=== PATIENT | male | born 1950 ===

== ENCOUNTER 2021-03-05 10:16 | Observation (INO) | payer OTHER ==
[~2021-03-05] VITALS: Ht 180.3 cm; Wt 81.7 kg
[2021-03-05 11:42] LABS: BASOPHILS ABSOLUTE AUTO 0.05 K/mm3 (0.00-0.23); BASOPHILS PERCENT AUTO 1 % (0-2); EOSINOPHILS ABSOLUTE AUTO 0.15 K/mm3 (0.00-0.68); EOSINOPHILS PERCENT AUTO 3 % (0-6); Hematocrit 40.9 % (37.0-53.0); Hemoglobin 13.5 g/dL (13.5-17.5); IMMATURE GRAN PERCENT AUTO 0 % (0-1); LYMPHOCYTES ABSOLUTE AUTO 1.23 K/mm3 (0.84-5.20); LYMPHOCYTES PERCENT AUTO 20 % (21-46); MONOCYTES ABSOLUTE AUTO 0.64 K/mm3 (0.16-1.47); MONOCYTES PERCENT AUTO 11 % (4-13); Mean Corpuscular HGB 31.6 pg (26.0-34.0); Mean Corpuscular Volume 96 fL (80-100); Mean Platelet Volume 11.2 fL (9.1-12.4); NEUTROPHILS ABSOLUTE AUTO 4.04 K/mm3 (1.96-9.15); NEUTROPHILS PERCENT AUTO 66 % (41-73); Platelet Count 124 K/mm3 (150-400); RDW Coefficient Variation 17.6 % (11.7-14.2); RDW Standard Deviation 63.1 fL (35.1-46.3); Red Blood Cell Count 4.27 M/mm3 (4.30-5.90); White Blood Cell Count 6.11 K/mm3 (4.00-11.30)
[2021-03-05 12:30] LABS: Magnesium, Blood 2.9 mg/dL (1.6-2.4)
[2021-03-05 12:32] LABS: Albumin, Blood 2.8 g/dL (3.4-5.0); Albumin/Globulin Ratio 0.6 (0.8-1.8); Bilirubin, Total 0.8 mg/dL (0.1-1.0); Bun/Creatinine Ratio 8.4 (12.0-20.0); Calcium, Blood 8.2 mg/dL (8.5-10.1); Creatinine, Blood 9.21 mg/dL (0.60-1.20); Globulin, Blood 4.7 g/dL (2.2-4.0); Total Protein, Blood 7.5 g/dL (6.4-8.2)
[2021-03-05 13:24] LABS: SARS-Cov-2 (COVID-19) PCR, MMC NEGATIVE (NEGATIVE)
== END 2021-03-05 17:59 | disposition home or self-care (01) ==
LOC: ER 10:16 → ERHOLD 10:17
PROVIDERS: Physician Assistant; ADMIT Internal Medicine
DX: E87.70 Fluid overload, unspecified (principal); I12.0 Hypertensive chronic kidney disease with stage 5 chronic kidney disease or end stage renal disease; N18.6 End stage renal disease; E11.22 Type 2 diabetes mellitus with diabetic chronic kidney disease; E87.5 Hyperkalemia; E87.1 Hypo-osmolality and hyponatremia; D64.9 Anemia, unspecified; N25.81 Secondary hyperparathyroidism of renal origin; I48.20 Chronic atrial fibrillation, unspecified; Z87.891 Personal history of nicotine dependence; Z20.822 Contact with and (suspected) exposure to COVID-19
CPT/HCPCS: 71046; 80053; 83735; 85025; A9270; G0257; U0004

== ENCOUNTER 2021-03-07 12:37 | Emergency (ER) | payer OTHER ==
[~2021-03-07] VITALS: Ht 180.3 cm; Wt 81.7 kg
[2021-03-07 13:50] LABS: BASOPHILS ABSOLUTE AUTO 0.05 K/mm3 (0.00-0.23); BASOPHILS PERCENT AUTO 1 % (0-2); EOSINOPHILS ABSOLUTE AUTO 0.14 K/mm3 (0.00-0.68); EOSINOPHILS PERCENT AUTO 2 % (0-6); Hematocrit 40.6 % (37.0-53.0); Hemoglobin 13.4 g/dL (13.5-17.5); IMMATURE GRAN ABSOLUTE AUTO 0.01 K/mm3 (0.00-0.10); IMMATURE GRAN PERCENT AUTO 0 % (0-1); LYMPHOCYTES PERCENT AUTO 20 % (21-46); MONOCYTES ABSOLUTE AUTO 0.64 K/mm3 (0.16-1.47); MONOCYTES PERCENT AUTO 11 % (4-13); Mean Corpuscular HGB 31.7 pg (26.0-34.0); Mean Corpuscular Volume 96 fL (80-100); Mean Platelet Volume 10.9 fL (9.1-12.4); NEUTROPHILS ABSOLUTE AUTO 3.92 K/mm3 (1.96-9.15); NEUTROPHILS PERCENT AUTO 66 % (41-73); Platelet Count 128 K/mm3 (150-400); RDW Coefficient Variation 17.4 % (11.7-14.2); Red Blood Cell Count 4.23 M/mm3 (4.30-5.90); White Blood Cell Count 5.96 K/mm3 (4.00-11.30)
[2021-03-07 14:23] LABS: Troponin I <0.015 ng/mL (0.000-0.040)
[2021-03-07 14:34] LABS: Alanine Aminotransfer (ALT/SGP 21 U/L (12-78); Albumin, Blood 2.8 g/dL (3.4-5.0); Albumin/Globulin Ratio 0.6 (0.8-1.8); Alk Phos 210 U/L (50-136); Anion Gap 7 mmol/L (6-16); Aspartate Aminotrans (AST/SGOT 18 U/L (12-37); Bilirubin, Total 0.9 mg/dL (0.1-1.0); Blood Urea Nitrogen 65 mg/dL (8-24); Bun/Creatinine Ratio 7.9 (12.0-20.0); CO2, Blood 28 mmol/L (21-32); Calcium, Blood 8.1 mg/dL (8.5-10.1); Chloride, Blood 98 mmol/L (98-108); Creatinine, Blood 8.18 mg/dL (0.60-1.20); Globulin, Blood 4.5 g/dL (2.2-4.0); Glomerular Filtration Rate 7 (60-); Glucose, Blood 190 mg/dL (70-99); Potassium, Blood 4.4 mmol/L (3.5-5.5); Sodium, Blood 133 mmol/L (136-145); Total Protein, Blood 7.3 g/dL (6.4-8.2)
[2021-03-07 14:55] LABS: Magnesium, Blood 2.7 mg/dL (1.6-2.4); Phosphorus, Blood 5.3 mg/dL (2.5-4.9)
[2021-03-07] MEDS ORDERED: GABA100 PO (16:19)
[2021-03-07] MEDS ORDERED: MIDO5 PO (16:19)
[2021-03-07] MEDS ORDERED: METO25ER PO (16:19)
[2021-03-07] MEDS ORDERED: ATOR40TA PO (16:19)
[2021-03-07] MEDS ORDERED: ELIQUIS5 M2 PO (16:20)
[2021-03-07] MEDS ORDERED: ERGO50000 PO (16:20)
[2021-03-07] MEDS ORDERED: FURO40 PO (16:20)
[2021-03-07] MEDS ORDERED: SEVEC800 PO (16:53)
== END 2021-03-07 17:18 | disposition home or self-care (01) ==
LOC: ER 12:37
PROVIDERS: Physician Assistant
DX: E11.22 Type 2 diabetes mellitus with diabetic chronic kidney disease (principal); N18.6 End stage renal disease; Z99.2 Dependence on renal dialysis; I48.91 Unspecified atrial fibrillation; Z79.01 Long term (current) use of anticoagulants; I12.0 Hypertensive chronic kidney disease with stage 5 chronic kidney disease or end stage renal disease; Z87.891 Personal history of nicotine dependence
CPT/HCPCS: 36415; 71046; 80053; 83690; 83735; 83880; 84100; 84484; 85025; 93005; 93010; 99283-25

== ENCOUNTER 2021-03-08 09:09 | Observation (INO) | payer OTHER ==
[~2021-03-08] VITALS: Ht 180.3 cm; Wt 83.0 kg
[~2021-03-08 09:09] MED LIST: ATOR40TA PO; ELIQUIS5 M2 PO; ERGO50000 PO; FURO40 PO; GABA100 PO; METO25ER PO; MIDO5 PO; SEVEC800 PO
[2021-03-08 11:15] LABS: Bun/Creatinine Ratio 8.3 (12.0-20.0); Calcium, Blood 7.7 mg/dL (8.5-10.1); Creatinine, Blood 8.96 mg/dL (0.60-1.20); Potassium, Blood 4.9 mmol/L (3.5-5.5)
--- NOTE | 2021-03-08 16:38 | NUR ---
DISCHARGE SUMMARY PATIENT DISCHARGED TO HOME. PATIENT ALERT AND ORIENTED THIS SHIFT. PATIENT ADMITTED LATE THIS MORNING. PATIENT ADMINTTED FOR ESRD NEEDING DIALYSIS. PATIENT DOWN FOR DIALYSIS EARLY THIS AFTERNOON. PATIENT BACK FROM DIALYSIS, DOING WELL. PATIENT WITHOUT IV. DISCHARGE INFORMATION REVIEWED WITH PATIENT. PATIENT AMBULATED OFF THE UNIT WITH NURSE.
== END 2021-03-08 16:29 | disposition home or self-care (01) ==
LOC: ER 09:09 → MEDS 09:10 → ENPENDDIS 16:29 → EDPENDDISDT 16:29 → EDPENDDISTM 16:29
PROVIDERS: Emergency Medicine; ADMIT Hospitalist
DX: E87.70 Fluid overload, unspecified (principal); I12.0 Hypertensive chronic kidney disease with stage 5 chronic kidney disease or end stage renal disease; N18.6 End stage renal disease; E11.22 Type 2 diabetes mellitus with diabetic chronic kidney disease; D64.9 Anemia, unspecified; E83.41 Hypermagnesemia; E88.09 Other disorders of plasma-protein metabolism, not elsewhere classified; R60.0 Localized edema; E78.5 Hyperlipidemia, unspecified; I48.20 Chronic atrial fibrillation, unspecified; Z79.01 Long term (current) use of anticoagulants; Z99.2 Dependence on renal dialysis; Z87.891 Personal history of nicotine dependence
CPT/HCPCS: 36415; 80048; 82947; A9270

== ENCOUNTER 2021-03-11 11:17 | Observation (INO) | payer OTHER ==
[~2021-03-11] VITALS: Ht 180.3 cm; Wt 83.5 kg
[2021-03-11 14:15] LABS: Albumin, Blood 2.7 g/dL (3.4-5.0); Albumin/Globulin Ratio 0.6 (0.8-1.8); Bilirubin, Total 0.8 mg/dL (0.1-1.0); Bun/Creatinine Ratio 7.9 (12.0-20.0); Calcium, Blood 8.1 mg/dL (8.5-10.1); Creatinine, Blood 9.92 mg/dL (0.60-1.20); Globulin, Blood 4.6 g/dL (2.2-4.0); Potassium, Blood 4.6 mmol/L (3.5-5.5); Total Protein, Blood 7.3 g/dL (6.4-8.2)
[2021-03-11 14:40] LABS: Albumin, Blood 2.7 g/dL (3.4-5.0); Anion Gap 13 mmol/L (6-16); Blood Urea Nitrogen 81 mg/dL (8-24); Bun/Creatinine Ratio 8.3 (12.0-20.0); CO2, Blood 20 mmol/L (21-32); Calcium, Blood 7.9 mg/dL (8.5-10.1); Chloride, Blood 98 mmol/L (98-108); Creatinine, Blood 9.79 mg/dL (0.60-1.20); Glomerular Filtration Rate 5 (60-); Glucose, Blood 228 mg/dL (70-99); Phosphorus, Blood 6.8 mg/dL (2.5-4.9); Potassium, Blood 4.6 mmol/L (3.5-5.5); Sodium, Blood 131 mmol/L (136-145)
== END 2021-03-11 15:30 | disposition home or self-care (01) ==
LOC: ER 11:17 → MEDS 11:18
PROVIDERS: Internal Medicine Nephrology; Physician Assistant; ADMIT Internal Medicine
DX: E87.70 Fluid overload, unspecified (principal); E87.1 Hypo-osmolality and hyponatremia; I12.0 Hypertensive chronic kidney disease with stage 5 chronic kidney disease or end stage renal disease; N18.6 End stage renal disease; E11.22 Type 2 diabetes mellitus with diabetic chronic kidney disease; E78.5 Hyperlipidemia, unspecified; I48.20 Chronic atrial fibrillation, unspecified; Z95.0 Presence of cardiac pacemaker; Z87.891 Personal history of nicotine dependence; Z79.01 Long term (current) use of anticoagulants; Z79.899 Other long term (current) drug therapy
CPT/HCPCS: 80053; 80069; 84100; 85018; 99284; G0257

== ENCOUNTER 2021-03-13 06:38 | Observation (INO) | payer OTHER ==
[~2021-03-13] VITALS: Ht 180.3 cm; Wt 81.2 kg
[2021-03-13 07:33] LABS: BASOPHILS ABSOLUTE AUTO 0.05 K/mm3 (0.00-0.23); BASOPHILS PERCENT AUTO 1 % (0-2); EOSINOPHILS ABSOLUTE AUTO 0.16 K/mm3 (0.00-0.68); EOSINOPHILS PERCENT AUTO 3 % (0-6); Hematocrit 44.9 % (37.0-53.0); Hemoglobin 14.3 g/dL (13.5-17.5); IMMATURE GRAN ABSOLUTE AUTO 0.02 K/mm3 (0.00-0.10); IMMATURE GRAN PERCENT AUTO 0 % (0-1); LYMPHOCYTES PERCENT AUTO 24 % (21-46); MONOCYTES ABSOLUTE AUTO 0.61 K/mm3 (0.16-1.47); MONOCYTES PERCENT AUTO 10 % (4-13); Mean Corpuscular HGB 31.2 pg (26.0-34.0); Mean Corpuscular HGB Conc 31.8 g/dL (31.5-36.5); Mean Corpuscular Volume 98 fL (80-100); NEUTROPHILS ABSOLUTE AUTO 4.02 K/mm3 (1.96-9.15); NEUTROPHILS PERCENT AUTO 63 % (41-73); Platelet Count 139 K/mm3 (150-400); RDW Coefficient Variation 17.2 % (11.7-14.2); RDW Standard Deviation 62.1 fL (35.1-46.3); Red Blood Cell Count 4.59 M/mm3 (4.30-5.90); White Blood Cell Count 6.36 K/mm3 (4.00-11.30)
[2021-03-13 08:24] LABS: Bun/Creatinine Ratio 7.5 (12.0-20.0); Calcium, Blood 7.6 mg/dL (8.5-10.1); Creatinine, Blood 8.53 mg/dL (0.60-1.20); Potassium, Blood 4.7 mmol/L (3.5-5.5)
== END 2021-03-13 13:27 | disposition left against medical advice (07) ==
LOC: ER 06:38 → MEDS 06:39 → ER 08:45 → MEDS 08:45
PROVIDERS: Emergency Medicine; ADMIT Internal Medicine
DX: I12.0 Hypertensive chronic kidney disease with stage 5 chronic kidney disease or end stage renal disease (principal); N18.6 End stage renal disease; E11.622 Type 2 diabetes mellitus with other skin ulcer; I48.20 Chronic atrial fibrillation, unspecified; E78.5 Hyperlipidemia, unspecified; Z87.891 Personal history of nicotine dependence; Z79.01 Long term (current) use of anticoagulants; Z79.899 Other long term (current) drug therapy
CPT/HCPCS: 36415; 80048; 85025; 99284; G0257

== ENCOUNTER 2021-03-15 06:35 | Observation (INO) | payer OTHER ==
[~2021-03-15] VITALS: Ht 180.3 cm; Wt 81.2 kg
[2021-03-15 10:49] LABS: Hemoglobin 13.5 g/dL (13.5-17.5)
[2021-03-15 11:12] LABS: Albumin, Blood 2.8 g/dL (3.4-5.0); Anion Gap 11 mmol/L (6-16); Blood Urea Nitrogen 61 mg/dL (8-24); Bun/Creatinine Ratio 7.2 (12.0-20.0); CO2, Blood 24 mmol/L (21-32); Calcium, Blood 7.1 mg/dL (8.5-10.1); Chloride, Blood 97 mmol/L (98-108); Creatinine, Blood 8.42 mg/dL (0.60-1.20); Glomerular Filtration Rate 6 (60-); Glucose, Blood 163 mg/dL (70-99); Phosphorus, Blood 5.7 mg/dL (2.5-4.9); Potassium, Blood 4.3 mmol/L (3.5-5.5); Sodium, Blood 132 mmol/L (136-145)
== END 2021-03-15 13:00 | disposition home or self-care (01) ==
LOC: ER 06:35 → MEDS 06:36
PROVIDERS: Internal Medicine Nephrology; ADMIT Family Medicine
DX: E87.70 Fluid overload, unspecified (principal); E87.1 Hypo-osmolality and hyponatremia; D64.9 Anemia, unspecified; I12.0 Hypertensive chronic kidney disease with stage 5 chronic kidney disease or end stage renal disease; N18.6 End stage renal disease; E11.22 Type 2 diabetes mellitus with diabetic chronic kidney disease; N25.81 Secondary hyperparathyroidism of renal origin; E78.5 Hyperlipidemia, unspecified; I48.20 Chronic atrial fibrillation, unspecified; Z95.0 Presence of cardiac pacemaker; Z99.2 Dependence on renal dialysis; Z87.891 Personal history of nicotine dependence; Z79.01 Long term (current) use of anticoagulants; Z79.899 Other long term (current) drug therapy
CPT/HCPCS: 80069; 85014; 85018; G0257

== ENCOUNTER 2021-03-21 09:46 | Emergency (ER) | payer OTHER ==
[~2021-03-21] VITALS: Ht 177.8 cm; Wt 85.7 kg
[2021-03-21 10:14] LABS: BASOPHILS ABSOLUTE AUTO 0.03 K/mm3 (0.00-0.23); BASOPHILS PERCENT AUTO 1 % (0-2); EOSINOPHILS ABSOLUTE AUTO 0.16 K/mm3 (0.00-0.68); EOSINOPHILS PERCENT AUTO 3 % (0-6); Hematocrit 44.5 % (37.0-53.0); Hemoglobin 14.6 g/dL (13.5-17.5); IMMATURE GRAN ABSOLUTE AUTO 0.01 K/mm3 (0.00-0.10); IMMATURE GRAN PERCENT AUTO 0 % (0-1); LYMPHOCYTES ABSOLUTE AUTO 1.23 K/mm3 (0.84-5.20); LYMPHOCYTES PERCENT AUTO 22 % (21-46); MONOCYTES ABSOLUTE AUTO 0.52 K/mm3 (0.16-1.47); MONOCYTES PERCENT AUTO 9 % (4-13); Mean Corpuscular HGB 31.4 pg (26.0-34.0); Mean Corpuscular HGB Conc 32.8 g/dL (31.5-36.5); Mean Corpuscular Volume 96 fL (80-100); Mean Platelet Volume 11.4 fL (9.1-12.4); NEUTROPHILS ABSOLUTE AUTO 3.73 K/mm3 (1.96-9.15); NEUTROPHILS PERCENT AUTO 66 % (41-73); Platelet Count 122 K/mm3 (150-400); RDW Coefficient Variation 16.8 % (11.7-14.2); RDW Standard Deviation 59.2 fL (35.1-46.3); Red Blood Cell Count 4.65 M/mm3 (4.30-5.90); White Blood Cell Count 5.68 K/mm3 (4.00-11.30)
[2021-03-21 10:36] LABS: Troponin I 0.021 ng/mL (0.000-0.040)
[2021-03-21 10:39] LABS: Albumin, Blood 3.1 g/dL (3.4-5.0); Albumin/Globulin Ratio 0.7 (0.8-1.8); Bilirubin, Total 0.8 mg/dL (0.1-1.0); Bun/Creatinine Ratio 8.6 (12.0-20.0); Calcium, Blood 7.6 mg/dL (8.5-10.1); Globulin, Blood 4.7 g/dL (2.2-4.0); Potassium, Blood 4.7 mmol/L (3.5-5.5); Total Protein, Blood 7.8 g/dL (6.4-8.2)
[2021-03-21 11:23] LABS: Base Excess Venous -7.2 mmol/L; Bicarbonate Venous 19.2 mmol/L (24.0-30.0); PCO2 Venous 36.8 mmHg (38-42); PO2 Venous 195 mmHg (38-42); pH Blood Venous 7.32 (7.34-7.37)
== END 2021-03-21 12:44 | disposition home or self-care (01) ==
LOC: ER 09:46
PROVIDERS: Emergency Medicine
DX: E11.22 Type 2 diabetes mellitus with diabetic chronic kidney disease (principal); I12.0 Hypertensive chronic kidney disease with stage 5 chronic kidney disease or end stage renal disease; N18.6 End stage renal disease; Z99.2 Dependence on renal dialysis; Z79.899 Other long term (current) drug therapy; Z79.4 Long term (current) use of insulin; I48.91 Unspecified atrial fibrillation; Z87.891 Personal history of nicotine dependence
CPT/HCPCS: 36415; 71045; 80053; 82330; 82803; 83880; 84484; 85025; 93005; 93010; 96374; 99285-25

== ENCOUNTER 2021-07-05 16:01 | Emergency (ER) | payer OTHER ==
[~2021-07-05] VITALS: Ht 177.8 cm; Wt 81.7 kg
[~2021-07-05 16:01] MED LIST changes: +Calcium Acetat667 MG PO; +HUMALOG JU100 UNIT/2; +INSULANPEN SC; +PANT40 PO
[2021-07-05 16:37] LABS: BASOPHILS ABSOLUTE AUTO 0.06 K/mm3 (0.00-0.23); BASOPHILS PERCENT AUTO 1 % (0-2); EOSINOPHILS ABSOLUTE AUTO 0.19 K/mm3 (0.00-0.68); EOSINOPHILS PERCENT AUTO 2 % (0-6); Hemoglobin 14.2 g/dL (13.5-17.5); IMMATURE GRAN ABSOLUTE AUTO 0.03 K/mm3 (0.00-0.10); IMMATURE GRAN PERCENT AUTO 0 % (0-1); LYMPHOCYTES ABSOLUTE AUTO 2.38 K/mm3 (0.84-5.20); LYMPHOCYTES PERCENT AUTO 23 % (21-46); MONOCYTES ABSOLUTE AUTO 1.25 K/mm3 (0.16-1.47); MONOCYTES PERCENT AUTO 12 % (4-13); Mean Corpuscular Volume 88 fL (80-100); Mean Platelet Volume 9.3 fL (9.1-12.4); NEUTROPHILS ABSOLUTE AUTO 6.31 K/mm3 (1.96-9.15); NEUTROPHILS PERCENT AUTO 62 % (41-73); Platelet Count 234 K/mm3 (150-400); RDW Coefficient Variation 15.4 % (11.7-14.2); Red Blood Cell Count 4.89 M/mm3 (4.30-5.90); White Blood Cell Count 10.22 K/mm3 (4.00-11.30)
[2021-07-05 16:46] LABS: Albumin, Blood 3.4 g/dL (3.4-5.0); Albumin/Globulin Ratio 0.7 (0.8-1.8); Bilirubin, Total 0.7 mg/dL (0.1-1.0); Bun/Creatinine Ratio 9.6 (12.0-20.0); Calcium, Blood 8.7 mg/dL (8.5-10.1); Creatinine, Blood 5.95 mg/dL (0.60-1.20); Globulin, Blood 4.8 g/dL (2.2-4.0); Potassium, Blood 4.3 mmol/L (3.5-5.5); Total Protein, Blood 8.2 g/dL (6.4-8.2)
[2021-07-05 16:50] LABS: Magnesium, Blood 2.7 mg/dL (1.6-2.4); Phosphorus, Blood 3.9 mg/dL (2.5-4.9)
[2021-07-05] MEDS ORDERED: LANTHANUM PO (18:40)
== END 2021-07-05 20:58 | disposition home or self-care (01) ==
LOC: ER 16:01
PROVIDERS: Student in an Organized Health Care Education/Training Program
DX: I12.0 Hypertensive chronic kidney disease with stage 5 chronic kidney disease or end stage renal disease (principal); E11.22 Type 2 diabetes mellitus with diabetic chronic kidney disease; N18.6 End stage renal disease; E11.649 Type 2 diabetes mellitus with hypoglycemia without coma; E87.1 Hypo-osmolality and hyponatremia; I48.91 Unspecified atrial fibrillation; I95.9 Hypotension, unspecified; E78.5 Hyperlipidemia, unspecified; Z99.2 Dependence on renal dialysis; Z91.048 Other nonmedicinal substance allergy status; Z79.4 Long term (current) use of insulin; Z79.899 Other long term (current) drug therapy
CPT/HCPCS: 36415; 71046; 80053; 82947; 83735; 83880; 84100; 84484; 85025; 93005; 93010; 99285-25; A9270; J7030

== ENCOUNTER 2021-12-11 10:05 | Day surgery (SDC) | payer OTHER ==
[~2021-12-11] VITALS: Ht 180.3 cm; Wt 82.0 kg
[~2021-12-11 10:05] MED LIST changes: +LANTHANUM PO; +NOVOLOG FL100 UNIT/3 SC; +TEMA30 PO
--- NOTE | 2021-12-11 15:11 | NUR ---
PATIENT IS UP OOB TO THE RESTROOM. PATIENT OFF THE MONITOR. VVS. DRESSED. PIV REMOVED. CATH TIP INTACT. PRESSURE DRESSING APPLIED. PATIENT DRESSED. REVIEWED DISCHARGE INSTRUCTIONS WITH THE PATIENT AND GIVEN COPIES. WILL RESUME DIALYSIS TOMORROW AT [facility]. PATIENT VERBALIZES UNDERSTANDING.
--- NOTE | 2021-12-11 15:35 | NUR ---
ABDOMINAL BINDER OBTAINED FROM THE SURGICAL FLOOR SUPPLY ROOM FOR THE PATIENT AND THE PATIENT WAS DISCHARGED HOME .
== END 2021-12-11 15:40 | disposition home or self-care (01) ==
LOC: MHTC 10:05
DX: N18.6 End stage renal disease (principal); Z79.01 Long term (current) use of anticoagulants; Z79.899 Other long term (current) drug therapy
CPT/HCPCS: 76937; 82947; 99152; 99153; C1750; C1769; C1887; C1894; J0690; J1644; J2250; J3010; J7030; J7040; Q9967

== ENCOUNTER 2024-12-16 15:10 | Inpatient (IN) | payer OTHER ==
[~2024-12-16] VITALS: Ht 175.3 cm; Wt 84.9 kg
[2024-12-16 17:43] VITALS: BP 155/81
[2024-12-16] MEDS ORDERED: Darbepoetin (Pharmacy Consult) SC SCH (18:00)
[2024-12-16 18:44] LABS: Anion Gap 11.0 mmol/L (3-11); Blood Urea Nitrogen 79.0 mg/dL (8-24); CO2, Blood 27.0 mmol/L (21-32); Calcium, Blood 12.9 mg/dL (8.5-10.1); Chloride, Blood 91.0 mmol/L (98-108); Creatinine, Blood 12.5 mg/dL (0.60-1.20); Glucose, Blood 226.0 mg/dL (70-99); Potassium, Blood 5.1 mmol/L (3.5-5.5); Sodium, Blood 124.0 mmol/L (136-145)
[2024-12-16] MEDS ORDERED: Ondansetron HCl 2 MG / ML 2ML Vial IV PRN (19:15)
--- NOTE | 2024-12-16 19:20 | NUR ---
V.O. FROM DR. JAEGER Patient to get Lokelma 10mg PO daily with first dose now. Called Nursing Electric Motor And Generator Assembler for contact info of PD (peritoneal dialysis) RN to dialyze patient tonight. Obtained contact number and got a hold of Lalitha PD-RN. Provided patient name and room number. Lalitha will call Dr. Jaeger for further instructions.
--- NOTE | 2024-12-16 20:00 | NUR ---
ASSUMPTION OF CARE RECEIVED CLIENT A DIRECT ADMIT FROM ED IN [place]. PER REPORT, CLIENT PD NEEDED REPLACED AND CLIENT HAD NOT DIALIZED IN 2-3 DAYS. WHEN CLIENT ARRIVED, HE STATED THAT THE PD WAS FUNCTIONAL, HE WAS JUST TO WEAK TO DIALIZE HIMSELF. CLIENT DID HAVE A FALL EXITING HIS RC APPROXIMATELY 2 DAYS AGO AND HIT HIS HEAD. CLIENT ALSO HAS ABRASIONS ON KNEES BILAT, CHIN, AND ELBOWS. CREATININE WAS 12.5. PROVIDER WAS IN THE ROOM WHEN LAB CALLED THE CRIT VALUE IN. PROVIDER STATED THAT HE PLANNED ON ORDERING A HEAD CT, AMMONIA LEVEL, AND A UA. PER REPORT, CLIENT IS AFIB AND IS AFIB AT BASELINE. BED IS IN LOW POSITION AND CALL LIGHT IS WITHIN REACH
[2024-12-16 20:26] VITALS: BP 152/94
[2024-12-16] MEDS ORDERED: Insulin Human Lispro 100 Units/ML 3ML Syringe SC SCH (21:00)
[2024-12-16] MEDS ORDERED: Insulin Glargine-Yfgn 100 Unit/mL 3 ML SYR SC SCH (21:00)
[2024-12-17 04:15] VITALS: BP 147/72
[2024-12-17 05:31] LABS: Hematocrit 34.0 % (37.0-53.0); Hemoglobin 11.5 g/dL (13.5-17.5)
[2024-12-17 06:13] LABS: Magnesium, Blood 2.4 mg/dL (1.6-2.4)
[2024-12-17 06:16] LABS: Albumin, Blood 2.2 g/dL (3.4-5.0); Anion Gap 11 mmol/L (3-11); Blood Urea Nitrogen 71 mg/dL (8-24); CO2, Blood 25 mmol/L (21-32); Calcium, Blood 11.2 mg/dL (8.5-10.1); Chloride, Blood 93 mmol/L (98-108); Creatinine, Blood 11.20 mg/dL (0.60-1.20); Glucose, Blood 317 mg/dL (70-99); Phosphorus, Blood 2.9 mg/dL (2.5-4.9); Potassium, Blood 4.3 mmol/L (3.5-5.5); Sodium, Blood 125 mmol/L (136-145)
--- NOTE | 2024-12-17 06:37 | NUR ---
Shift Summary Patient was a direct admit who arrived during previous shift. Patient is alert/oriented x 2-3, slightly CAHUILLA, forgetful, and lives alone in a trailer which he has stairs in the front. Patient had fallen while going down the front stairs of his trailer and has since been too weak to give himself peritoneal dialysis because the dialysate solutions were too heavy to carry inside. States he was fairly independent prior to the fall. Admission completed, abrasions and wounds are documented with photos in chart and wounds dressed. Med reconcilation incomplete, it was felt that patient was not mentally capable of reviewing home medications at the time. Med rec deferred to day shift. To note, patient is seen at the [facility] and has a PCP there but he is unable to recall the full name of his PCP except that it is Dr. Barr (unsure if spelling is correct). TQ2 hours using wedge and pillows. Patient currently receiving peritoneal dialysis for 10 hours over night. Lantus given d/t glucose in the dialysate solution, but patient has a poor appetite. Received a critical lab for creatinine this morning (11.20) but hospitalist not notified d/t lab trending in the right direction. On admission, creatinine was 12.5. Bed in lowest position. Call light near. Sleeping well.
[2024-12-17 07:49] VITALS: BP 145/63
[2024-12-17] MEDS ORDERED: Insulin Human Lispro 100 Units/ML 3ML Syringe SC ONE (08:05)
[2024-12-17] MEDS ORDERED: Insulin Human Lispro 100 Units/ML 3ML Syringe SC SCH ×2 (08:30→12:37)
[2024-12-17 16:22] VITALS: BP 129/63
--- NOTE | 2024-12-17 17:06 | NUR ---
WHILE CHECKING BLOOD SUGAR AND PROVIDING A SNACK, PATIENT STATES "I WOULD LIKE TO DISCONTINUE LIFE IF THIS CONTINUES." RN MARIEL Day NOTIFIED. MD MITCHELL NOTIFIED BY RN.
[2024-12-17] MEDS ORDERED: INSULIN HUMAN REGULAR IV ONE ×2 (18:00)
[2024-12-17] MEDS ORDERED: [UNRECOGNIZED DRUG - OTHER] IV ONE (18:00)
[2024-12-17] MEDS ORDERED: DEX IV ONE ×2 (18:00)
[2024-12-17] MEDS ORDERED: [UNRECOGNIZED DRUG - OTHER] IV ONE (18:00)
--- NOTE | 2024-12-17 18:32 | NUR ---
SHIFT SUM PT IS ALERT TO SELF. HE IS AWARE HE IS IN A HOSPITAL, BUT DOESNT REMEMBER THE CITY AFTER BEING TOLD. HE DOES ASK ABOUT THE DATE. ITS HARD TO TELL HOW ORIENTED HE IS BECAUSE OF HIS FATIGUE AT TIMES AND HEARING. HIS AM BLOOD SUGAR WAS 362. MD WAS NOTIFIED AND VERBAL ORDER FOR 10 ADDITIONAL UNITS RECEIVED. LUNCH BLOOD SUGAR 178. NO INSULIN WAS GIVEN, HE WAS REFUSING TO EAT. DINNER BLOOD SUGAR 62. MD WAS NOTIFED OF BLOOD SUGARS AND THAT THE PT SAID THAT HE IS READY TO END TREATMENT. PT HAD A BM TODAY ON THE BED [place] BUT FELT HE WAS ABLE TO GET HIMSELF TO THE BATHROOM. PT REMINDED THAT WE TRIED THIS AND IS NOT ABLE TO HOLD HIMSELF UP WHILE SITTING. HE IS ALSO NOT FULLY ABLE TO FEED HIMSELF OR HOLD A CUP, HIS HANDS COMPLELY STOP HAVING ANY STRENGTH AND JUST DROP DOWN ONTO HIS LAP OR ON THE BED. PT SAYS THIS IS A NEW THING OVER THE PAST COUPLE OF WEEKS. AT THE END OF SHIFT PTS BLOOD SUGAR WAS TAKEN AGAIN AND IT WAS IN THE 80S. HE IS GETTING DIALSIS AND THE BAGS DO HAVE INSULIN IN THEM, THE DIAYLSIS NURSE WAS TOLD HIS BLOOD SUGAR WAS 59, AND SAID HE WAS HAVING DIFFICULTY CHARTING THE MEDICATION/BAGS HE WAS ADMINISTERING FOR THE DIAYLSIS, BUT HE IS GIVING THEM AND THAT IT LOOKS LIKE THEY ARE SCANNED OUT CORRECTLY.
--- NOTE | 2024-12-17 18:50 | NUR ---
PT AWAKE / ALERT / SITTING UP IN BED EATTING DINNER. CYCLER STRUNG / PRIMED AND PROGRAMMED PER RX. WHEN PRIME COMPLETE PT CONNECTED AND THERAPY STARTED. PT MONITORED THROUGH ID AND START OF FILL#1 WITHOUT CONCERN OR COMPLAINT OF DISCOMFORT. DRESSING RENEWED WITH NEW STERILE DRESSING AND 2 STRAIN RELIEFS. EXIT SITE WITH SOME REDNESS AT INSERT. TANK FARM ATTENDANT AWARE OF OVERNIGHT THERAPY IN PROGRESS.
[2024-12-17 19:19] VITALS: BP 125/63
[2024-12-17 23:54] VITALS: BP 132/119
[2024-12-18 04:24] VITALS: BP 134/76
--- NOTE | 2024-12-18 06:07 | NUR ---
SHIFT SUMMARY PT IS ALERT AND ORIENTED TIMES 3-4. PT ADMITTED FOR PARITONEAL DIALYSIS CATH NOT WORKING. PT S GLUCOSE WAS IN 80 S AT ONE POINT AND UP TO THE 300 S. PT HAS A PALLATIVE CARE CONSULT TODAY. PT IS ON TELE A-FLUTTER WITH VENTRICULAR PACE, DM2, TAKE MEDICATION WHOLE WITH WATER. PT WAS RECEPTIVE TO CARE AND APPEARED TO SLEEP ON AND OFF THROUGH THE NIGHT. CALL LIGHT WITHIN REACH, RAILS TIMES 2, BED IN LOW POSITION.
[2024-12-18 06:24] LABS: BASOPHILS ABSOLUTE AUTO 0.04 K/mm3 (0.00-0.23); BASOPHILS PERCENT AUTO 1 % (0-2); EOSINOPHILS ABSOLUTE AUTO 0.22 K/mm3 (0.00-0.68); EOSINOPHILS PERCENT AUTO 3 % (0-6); Hematocrit 34.5 % (37.0-53.0); Hemoglobin 11.6 g/dL (13.5-17.5); IMMATURE GRAN ABSOLUTE AUTO 0.02 K/mm3 (0.00-0.10); IMMATURE GRAN PERCENT AUTO 0 % (0-1); LYMPHOCYTES ABSOLUTE AUTO 1.31 K/mm3 (0.84-5.20); LYMPHOCYTES PERCENT AUTO 18 % (21-46); MONOCYTES ABSOLUTE AUTO 0.60 K/mm3 (0.16-1.47); MONOCYTES PERCENT AUTO 8 % (4-13); Mean Corpuscular HGB Conc 33.6 g/dL (31.5-36.5); Mean Corpuscular Volume 93 fL (80-100); NEUTROPHILS ABSOLUTE AUTO 5.07 K/mm3 (1.96-9.15); NEUTROPHILS PERCENT AUTO 70 % (41-73); NRBC ABSOLUTE 0.00 K/mm3 (0.00-0.02); NRBC Auto 0.0 /100 WBC (0.0-0.2); Platelet Count 147 K/mm3 (150-400); RDW Coefficient Variation 14.3 % (11.7-14.2); RDW Standard Deviation 47.5 fL (35.1-46.3)
[2024-12-18 06:55] LABS: Magnesium, Blood 2.1 mg/dL (1.6-2.4); Thyroid Stimulating Hormone 2.270 uIU/mL (0.360-4.800); Uric Acid, Blood 5.1 mg/dL (3.5-7.2)
[2024-12-18 07:04] LABS: Albumin, Blood 2.2 g/dL (3.4-5.0); Anion Gap 11 mmol/L (3-11); Blood Urea Nitrogen 60 mg/dL (8-24); CO2, Blood 29 mmol/L (21-32); Calcium, Blood 10.6 mg/dL (8.5-10.1); Chloride, Blood 92 mmol/L (98-108); Creatinine, Blood 10.40 mg/dL (0.60-1.20); Glucose, Blood 213 mg/dL (70-99); Phosphorus, Blood 3.1 mg/dL (2.5-4.9); Potassium, Blood 3.8 mmol/L (3.5-5.5); Sodium, Blood 128 mmol/L (136-145)
[2024-12-18 07:18] VITALS: BP 122/78
[2024-12-18 13:09] VITALS: BP 130/81
[2024-12-18 15:54] VITALS: BP 149/85
--- NOTE | 2024-12-18 17:46 | NUR ---
PATIENT IN BED DOZING UPON FIRST ENCOUNTER BUT WAKENS EASILY TO VERBAL STIMULATION. MEANTAL CLARITY SEEMS TO BE IMPROVING. CYCLER STRUNG, PRIMED AND PROGRAMMED PER ORDER. NO INSULIN IN BAGS TONIGHT. PT AESEPTICALLY CONNECTED WHEN PRIME COMPLETE. NO C/O DISCOMFORT DURING ID AND FILL #1. EXIT SITE CARE DONE. SITE STILL RED BUT IMPROVING. NEW STERILE DRESSING APPLIED WITH 3 STRAIN RELIEFS. SALES PROPERTY MANAGER AWARE OF OVERNIGHT CCPD THERAPY IN PROGRESS.
--- NOTE | 2024-12-18 18:14 | NUR ---
PT PLEASANT AND COOP TODAY. TRUDY DIALYSIS STARTED BY SHANE IN DIALYSIS FOR TONITE. NO C/O PAIN. PT STATES WANTING TO GET SOME EXERCIZE SOON. NO OTHER NEW CONCERNS NOTED. BED INL OW POSITOIN, CALL LITE IN REACH, CALLS APPROP
[2024-12-18 20:28] VITALS: BP 136/80
[2024-12-19 00:37] VITALS: BP 113/77
[2024-12-19 05:17] VITALS: BP 152/92
[2024-12-19 05:34] LABS: BASOPHILS ABSOLUTE AUTO 0.03 K/mm3 (0.00-0.23); BASOPHILS PERCENT AUTO 0 % (0-2); EOSINOPHILS ABSOLUTE AUTO 0.25 K/mm3 (0.00-0.68); EOSINOPHILS PERCENT AUTO 3 % (0-6); Hematocrit 31.8 % (37.0-53.0); Hemoglobin 10.8 g/dL (13.5-17.5); IMMATURE GRAN ABSOLUTE AUTO 0.03 K/mm3 (0.00-0.10); IMMATURE GRAN PERCENT AUTO 0 % (0-1); LYMPHOCYTES ABSOLUTE AUTO 1.59 K/mm3 (0.84-5.20); LYMPHOCYTES PERCENT AUTO 22 % (21-46); MONOCYTES ABSOLUTE AUTO 0.71 K/mm3 (0.16-1.47); MONOCYTES PERCENT AUTO 10 % (4-13); Mean Corpuscular HGB Conc 34.0 g/dL (31.5-36.5); Mean Corpuscular Volume 91 fL (80-100); NEUTROPHILS ABSOLUTE AUTO 4.66 K/mm3 (1.96-9.15); NEUTROPHILS PERCENT AUTO 64 % (41-73); NRBC ABSOLUTE 0.00 K/mm3 (0.00-0.02); NRBC Auto 0.0 /100 WBC (0.0-0.2); Platelet Count 134 K/mm3 (150-400); RDW Coefficient Variation 14.5 % (11.7-14.2); RDW Standard Deviation 46.5 fL (35.1-46.3)
[2024-12-19 06:18] LABS: Magnesium, Blood 1.9 mg/dL (1.6-2.4)
[2024-12-19 06:20] LABS: Alanine Aminotransfer (ALT/SGP 29.0 U/L (12-78); Albumin, Blood 2.0 g/dL (3.4-5.0); Albumin/Globulin Ratio 0.6 (0.8-1.8); Anion Gap 11.0 mmol/L (3-11); Aspartate Aminotrans (AST/SGOT 30.0 U/L (12-37); Bilirubin, Total 0.7 mg/dL (0.1-1.0); Blood Urea Nitrogen 59.0 mg/dL (8-24); CO2, Blood 29.0 mmol/L (21-32); Calcium, Blood 10.0 mg/dL (8.5-10.1); Chloride, Blood 94.0 mmol/L (98-108); Creatinine, Blood 10.3 mg/dL (0.60-1.20); Globulin, Blood 3.4 g/dL (2.2-4.0); Glucose, Blood 235.0 mg/dL (70-99); Phosphorus, Blood 2.8 mg/dL (2.5-4.9); Potassium, Blood 3.5 mmol/L (3.5-5.5); Sodium, Blood 130.0 mmol/L (136-145); Total Protein, Blood 5.4 g/dL (6.4-8.2)
--- NOTE | 2024-12-19 06:24 | NUR ---
PATIENT AWAKE MOSLTY AND WHEN AWAKE ONLY ALERT TO SELF , SLOW TO RESPOND, FORGETS LIMITATIONS, AND HAS AUDITORY AND VISUAL HALUCINATION. DENIES PAIN OR SOB. NO VOID OR BM . ON PERITONIEL DIALYSIS DURRING THE NIGHT. BED ALARM ON AT ALL TIMES. WOUND CARE COMPLETE AND IV REDRESSED. .
[2024-12-19 07:36] VITALS: BP 150/97
--- NOTE | 2024-12-19 17:45 | NUR ---
SHIFT SUMMARY PT IS A/OX3-4. 1 PERSON ASSIST WITH FWW AND GB. NO ACUTE CHANGES THROUGHOUT THIS SHIFT. ON TELE RUNNING AFIB IN THE 60'S, V-PACED. ON 1000ML FLUID RESTRICTION. WOUND CARE DRESSINGS REMAIN C/D/I. PT RECIEVING PERITONEAL DIALYSIS THIS EVENING. PT IS PLEASANT AND COOPERATIVE WITH CARE AND CALLS APPROPRAITELY USING THE CALL LIGHT.
[2024-12-19 20:24] VITALS: BP 137/86
[2024-12-19] MEDS ORDERED: Insulin Human Lispro 100 Units/ML 3ML Syringe SC ONE (21:20)
--- NOTE | 2024-12-19 21:20 | NUR ---
PTS BLOOD SUGAR WAS 462. CALLED MD AND INFORMED HIM OF PTS BLOOD SUGAR. NEW ORDER RECEIVED FOR 8 UNITS HUMALOG INSULIN.
[2024-12-20 00:21] VITALS: BP 130/71
--- NOTE | 2024-12-20 04:55 | NUR ---
SHIFT SUMMARY PT ALERT ORIENTED WITH INTERMITTENT CONFUSION AND HALLUCINATIONS. ABLE TO VERBALIZE NEEDS CALLS APPROPRIATELY. RECEIVED PERITONEAL DIALYSIS LAST NIGHT. NO URINE OUTPUT THIS SHIFT. LABS TO BE COLLECTED THIS AM. FS AC AND HS WAS 462. MD WAS CALLED AND HE RECEIVED 8 UNITS OF HUMALOG AT HS. REMAINS ON TELEMETRY AT AFIB AT 70. REMAINS ON 1 LITER FLUID RESTRICTION. DRESSINGS INTACT TO SKIN TEARS ON BILAT KNEES AND LT ELBOW. VSS ON RA SATTING AT 98%. IN BED AT THIS TIME WITH CALL LIGHT IN REACH AND BED ALARM ON
[2024-12-20 05:13] VITALS: BP 138/73
[2024-12-20 07:42] VITALS: BP 106/65
[2024-12-20 09:10] LABS: BASOPHILS ABSOLUTE AUTO 0.06 K/mm3 (0.00-0.23); BASOPHILS PERCENT AUTO 1 % (0-2); EOSINOPHILS ABSOLUTE AUTO 0.31 K/mm3 (0.00-0.68); EOSINOPHILS PERCENT AUTO 4 % (0-6); Hematocrit 32.4 % (37.0-53.0); Hemoglobin 10.9 g/dL (13.5-17.5); IMMATURE GRAN ABSOLUTE AUTO 0.05 K/mm3 (0.00-0.10); IMMATURE GRAN PERCENT AUTO 1 % (0-1); LYMPHOCYTES ABSOLUTE AUTO 1.75 K/mm3 (0.84-5.20); LYMPHOCYTES PERCENT AUTO 22 % (21-46); MONOCYTES ABSOLUTE AUTO 0.73 K/mm3 (0.16-1.47); MONOCYTES PERCENT AUTO 9 % (4-13); Mean Corpuscular HGB Conc 33.6 g/dL (31.5-36.5); Mean Corpuscular Volume 93 fL (80-100); NEUTROPHILS ABSOLUTE AUTO 5.22 K/mm3 (1.96-9.15); NEUTROPHILS PERCENT AUTO 64 % (41-73); NRBC ABSOLUTE 0.00 K/mm3 (0.00-0.02); NRBC Auto 0.0 /100 WBC (0.0-0.2); Platelet Count 155 K/mm3 (150-400); RDW Coefficient Variation 14.6 % (11.7-14.2); RDW Standard Deviation 47.5 fL (35.1-46.3)
[2024-12-20 09:40] LABS: Magnesium, Blood 1.8 mg/dL (1.6-2.4)
[2024-12-20 09:50] LABS: Alanine Aminotransfer (ALT/SGP 29.0 U/L (12-78); Albumin, Blood 2.0 g/dL (3.4-5.0); Albumin/Globulin Ratio 0.6 (0.8-1.8); Anion Gap 6.0 mmol/L (3-11); Aspartate Aminotrans (AST/SGOT 34.0 U/L (12-37); Bilirubin, Total 0.6 mg/dL (0.1-1.0); Blood Urea Nitrogen 62.0 mg/dL (8-24); CO2, Blood 29.0 mmol/L (21-32); Calcium, Blood 9.6 mg/dL (8.5-10.1); Chloride, Blood 97.0 mmol/L (98-108); Creatinine, Blood 10.8 mg/dL (0.60-1.20); Globulin, Blood 3.6 g/dL (2.2-4.0); Glucose, Blood 139.0 mg/dL (70-99); Phosphorus, Blood 3.0 mg/dL (2.5-4.9); Potassium, Blood 3.6 mmol/L (3.5-5.5); Sodium, Blood 128.0 mmol/L (136-145); Total Protein, Blood 5.6 g/dL (6.4-8.2)
--- NOTE | 2024-12-20 17:42 | NUR ---
PT AWAKE / ALERT / SITTING UP IN CHAIR THIS AFTERNOON. VERY CONVERSANT BUT DEMONSTRATES SOME CONFUSION R/T DETAILS OF CURRENT SITUATION. CYCLER STRUNG, PRIMED AND PROGRAMMED PER ORDERS GIVEN. WHEN PRIME COMPLETE, PT AESEPTICALLY CONNECTED AND THERAPY STARTED. DRESSING MISSING ON EXIT SITE THIS AFTERNOON. SITE CLEANED AND REDRESSED WITH NEW STERILE DRESSING. SOME REDNESS REMAINS AT INSERT. INTERMODAL OWNER OPERATOR TRUCK DRIVER AWARE OF OVERNIGHT THERAPY IN PROGRESS. DIALYSIS NURSE WILL DISCONNECT PT IN THE MORNING.
--- NOTE | 2024-12-20 19:37 | NUR ---
SHIFT SUMMARY CLIENT IS AOX4, BUT HAS PERIODIC EPISODE OF CONFUSION AND HALLUCINATIONS. CLIENT IS MEDICATION COMPLIANT. TELEMETRY WAS DISCONTINUED. BLOOD SUGARS WERE 149,786, & 150. INSULIN COVERAGE WAS ADMINISTERED PER EMAR. DIALYSIS NURSE IN TO STARTED PERITINEAL DIALYSIS AND CLIENT IS DIALYSING AT END OF SHIFT. BED IS IN LOW POSITION AND CALL LIGHT IS WITHIN REACH
[2024-12-20 20:23] VITALS: BP 126/70
--- NOTE | 2024-12-21 00:07 | NUR ---
21:45 Patient assisted to the restroom by MSWS. Patient independently performed hygiene tasks and is then assisted back to bed by RN. 23:00 Patient is resting comfortably in bed with his eyes closed. Call light within reach.
--- NOTE | 2024-12-21 03:26 | NUR ---
Patient's dialysis machine was erroring out for low pressure. Bag adjusted and alarm stopped alarming. Patient is resting in bed.
[2024-12-21 05:02] VITALS: BP 152/92
--- NOTE | 2024-12-21 05:18 | NUR ---
SHIFT SUMMARY PT ALERT ORIENTED X 4 ABLE TO VERBALIZE NEEDS CALLS APPROPRIATELY DOES HAVE SOME HALLUCINATIONS AMBULATES WITH SBA WITH WALKER WAS ABLE TO AMBULATE TO THE BATHROOM. HE HAD HIS PERITONEAL DIALYSIS LAST NIGHT AND HE TOLERATED IT WELL. REMAINS ON 1 LITER FLUID RESTRICTION HAS SKIN TEARS TO HIS BILATERAL KNEES AND LT ELBOW WITH DRESSINGS INTACT. ALSO HAS BRUISES TO HIS CHIN, NECK ELBOW AND KNEES FROM A FALL AT HOME. HE HAS A RT ARM FISTULA WITH GOOD BRUIT. WAITING ON A SNF PLACEMENT WHERE HE CAN DO DIALYSIS. RESTING IN BED AT THIS TIME WITH CALL LIGHT IN REACH
--- NOTE | 2024-12-21 05:28 | NUR ---
SHIFT SUMMARY: PATIENT HAS PERIODS OF BEING A&Ox4 AND PERIODS WHERE HE IS CONFUSED. PATIENT IS EXPERIENCING BOTH VISUAL AND AUDITORY HALLUCINATIONS THROUGHOUT THE NIGHT AND CALMS ONCE HE IS RECENTERED. HE IS PLEASANT AND COOPERATIVE WITH CARE. CALLS APPROPRIATELY AND IS ABLE TO ADVOCATE NEEDS EFFECTIVELY. HE AMBULATES WITH FWW AND STAND BY ASSIST ALTHOUGH HE IS WEAK. HE IS ORIENTED TO HIS ABILITY AND WILL RETURN TO BED ONCE HE DONE WITH ADLS. PATIENT IS CONTINENT OF BOWEL AND BLADDER; ALTHOUGH HAS HAD NO URINE OUTPUT OR A BOWEL MOVEMENT DURING THIS SHIFT. PATIENT IS ON FLUID RESTRICTION. PATIENT IS NOT ON TELE, BP HAS BEEN WNL. GLUCOSE LEVEL WAS 330 AT BEDTIME. 2 UNITS OF HUMALOG AND 10 UNITS OF GLARGINE ARE ADMINISTERED. OPEN WOUND ON LEFT IS CLEANED AND BANDAGED.
[2024-12-21 06:33] LABS: BASOPHILS ABSOLUTE AUTO 0.05 K/mm3 (0.00-0.23); BASOPHILS PERCENT AUTO 1 % (0-2); EOSINOPHILS ABSOLUTE AUTO 0.28 K/mm3 (0.00-0.68); EOSINOPHILS PERCENT AUTO 3 % (0-6); Hematocrit 32.5 % (37.0-53.0); Hemoglobin 11.1 g/dL (13.5-17.5); IMMATURE GRAN ABSOLUTE AUTO 0.04 K/mm3 (0.00-0.10); IMMATURE GRAN PERCENT AUTO 0 % (0-1); LYMPHOCYTES ABSOLUTE AUTO 1.33 K/mm3 (0.84-5.20); LYMPHOCYTES PERCENT AUTO 15 % (21-46); MONOCYTES ABSOLUTE AUTO 0.73 K/mm3 (0.16-1.47); MONOCYTES PERCENT AUTO 8 % (4-13); Mean Corpuscular HGB Conc 34.2 g/dL (31.5-36.5); Mean Corpuscular Volume 91 fL (80-100); NEUTROPHILS ABSOLUTE AUTO 6.71 K/mm3 (1.96-9.15); NEUTROPHILS PERCENT AUTO 73 % (41-73); NRBC ABSOLUTE 0.00 K/mm3 (0.00-0.02); NRBC Auto 0.0 /100 WBC (0.0-0.2); Platelet Count 153 K/mm3 (150-400); RDW Coefficient Variation 14.8 % (11.7-14.2); RDW Standard Deviation 47.8 fL (35.1-46.3)
[2024-12-21 07:07] LABS: Magnesium, Blood 1.8 mg/dL (1.6-2.4)
[2024-12-21 07:10] LABS: Albumin, Blood 2.2 g/dL (3.4-5.0); Anion Gap 10 mmol/L (3-11); Blood Urea Nitrogen 58 mg/dL (8-24); CO2, Blood 29 mmol/L (21-32); Calcium, Blood 9.2 mg/dL (8.5-10.1); Chloride, Blood 95 mmol/L (98-108); Creatinine, Blood 10.20 mg/dL (0.60-1.20); Glucose, Blood 285 mg/dL (70-99); Phosphorus, Blood 3.3 mg/dL (2.5-4.9); Potassium, Blood 3.7 mmol/L (3.5-5.5); Sodium, Blood 130 mmol/L (136-145)
[2024-12-21 07:40] VITALS: BP 125/72
--- NOTE | 2024-12-21 15:38 | NUR ---
AMA DISCHARGE CLIENT IS AOX3-4. MEDICATION COMPLIANT. COMPLETED PARATENEAL DIALYSIS. WENT TO DIALYSIS FOR HEMO DIALYSIS. CLIENT'S FISTULA FAILED. CLIENT SPENT MOST OF HIS TIME ON THE UNIT ON HIS TELEPHONE. IT WAS NOTED THAT THE CLIENT WAS NO LONGER IN HIS ROOM. SUBSEQUENTLY, A NOTE WAS FOUND STATING HE WAS LEAVING THE HOSPITAL. CLIENT'S PROPERTY WAS MISSING OUT OF THE ROOM AND THE CLIENT STILL HAD HIS IV IN PLACE IN THE LEFT AC.
[2024-12-22 16:55] LABS: HEPATITIS B SURFACE ANTIBODY 73.55 IU/L
[2024-12-22 17:28] LABS: HBV CORE ANTIBODIES,TOTAL Negative (Negative)
== END 2024-12-21 13:40 | disposition left against medical advice (07) | DRG 682 ==
LOC: MEDS 15:10
PROVIDERS: Internal Medicine Nephrology; Nurse Practitioner Acute Care; ADMIT Internal Medicine
PROC: 3E1M39Z Irrigation of Peritoneal Cavity using Dialysate, Percutaneous Approach (ICD-10-PCS; principal; 2024-12-16)
DX: N17.9 Acute kidney failure, unspecified (principal); G92.8 Other toxic encephalopathy; I48.92 Unspecified atrial flutter; E87.1 Hypo-osmolality and hyponatremia; I13.2 Hypertensive heart and chronic kidney disease with heart failure and with stage 5 chronic kidney disease, or end stage renal disease; I50.22 Chronic systolic (congestive) heart failure; I48.19 Other persistent atrial fibrillation; D63.1 Anemia in chronic kidney disease; Z66 Do not resuscitate; N18.6 End stage renal disease; Z60.2 Problems related to living alone; Z99.2 Dependence on renal dialysis; R29.6 Repeated falls; R53.1 Weakness; E11.22 Type 2 diabetes mellitus with diabetic chronic kidney disease; K74.60 Unspecified cirrhosis of liver; M10.9 Gout, unspecified; E87.5 Hyperkalemia; Z91.158 Patient's noncompliance with renal dialysis for other reason; E11.65 Type 2 diabetes mellitus with hyperglycemia; Z79.01 Long term (current) use of anticoagulants; Z79.4 Long term (current) use of insulin; Z79.899 Other long term (current) drug therapy; E83.52 Hypercalcemia; E88.09 Other disorders of plasma-protein metabolism, not elsewhere classified; F32.9 Major depressive disorder, single episode, unspecified
CPT/HCPCS: 36415; 70450; 71045; 80048; 80053; 80069; 82140; 82533; 82947; 83036; 83735; 84100; 84443; 84550; 85014; 85018; 85025; 86704; 87340; 97110; 97112; 97116; 97162; 97165; 97530; 97535; A9270; G0378; J1815

== ENCOUNTER 2024-12-21 14:50 | Emergency (ER) | payer OTHER ==
[~2024-12-21] VITALS: Ht 165.1 cm; Wt 74.8 kg
== END 2024-12-21 15:18 | disposition left against medical advice (07) ==
LOC: ER 14:50
DX: S01.81XA Laceration without foreign body of other part of head, initial encounter (principal); W18.30XA Fall on same level, unspecified, initial encounter; Z87.891 Personal history of nicotine dependence; Z79.4 Long term (current) use of insulin; Z79.899 Other long term (current) drug therapy
CPT/HCPCS: 99282

== ENCOUNTER 2025-03-10 21:04 | Inpatient (IN) | payer OTHER ==
[~2025-03-10] VITALS: Ht 175.3 cm; Wt 80.1 kg
[2025-03-11] VITALS (20 sets, daily range): BP systolic 81–121; BP diastolic 44–77
[2025-03-11 01:43] LABS: Hematocrit 32.7 % (37.0-53.0); Hemoglobin 10.6 g/dL (13.5-17.5); Mean Corpuscular HGB Conc 32.4 g/dL (31.5-36.5); Mean Corpuscular Volume 97 fL (80-100); NRBC ABSOLUTE 0.00 K/mm3 (0.00-0.02); NRBC Auto 0.0 /100 WBC (0.0-0.2); Platelet Count 146 K/mm3 (150-400); RDW Coefficient Variation 16.8 % (11.7-14.2); RDW Standard Deviation 58.5 fL (35.1-46.3)
[2025-03-11 01:58] LABS: Prothrombin Time Results 14.7 Sec (9.7-11.5)
[2025-03-11 01:59] LABS: Alanine Aminotransfer (ALT/SGP 29.0 U/L (12-78); Albumin, Blood 2.8 g/dL (3.4-5.0); Albumin/Globulin Ratio 0.7 (0.8-1.8); Anion Gap 11.0 mmol/L (3-11); Aspartate Aminotrans (AST/SGOT 42.0 U/L (12-37); Bilirubin, Total 0.7 mg/dL (0.1-1.0); Blood Urea Nitrogen 41.0 mg/dL (8-24); CO2, Blood 29.0 mmol/L (21-32); Calcium, Blood 11.0 mg/dL (8.5-10.1); Chloride, Blood 91.0 mmol/L (98-108); Creatinine, Blood 7.25 mg/dL (0.60-1.20); Globulin, Blood 4.1 g/dL (2.2-4.0); Glucose, Blood 152.0 mg/dL (70-99); Magnesium, Blood 2.2 mg/dL (1.6-2.4); Phosphorus, Blood 3.8 mg/dL (2.5-4.9); Potassium, Blood 4.1 mmol/L (3.5-5.5); Sodium, Blood 127.0 mmol/L (136-145); Total Protein, Blood 6.9 g/dL (6.4-8.2)
[2025-03-11 02:01] LABS: BAND PERCENT MAN 28 % (0-8); BASOPHILS ABSOLUTE MAN 0.00 K/mm3 (0.00-0.23); BASOPHILS PERCENT MAN 0 % (0-2); EOSINOPHILS ABSOLUTE MAN 0.00 K/mm3 (0.00-0.68); EOSINOPHILS PERCENT MAN 0 % (0-6); LYMPHOCYTES ABSOLUTE MAN 0.70 K/mm3 (0.84-5.20); LYMPHOCYTES PERCENT MAN 2 % (21-46); METAMYELOCYTE ABSOLUTE MAN 1.40 K/mm3 (0.00-0.00); METAMYELOCYTE PERCENT MAN 4 % (0-0); MONOCYTES ABSOLUTE MAN 0.35 K/mm3 (0.16-1.47); MONOCYTES PERCENT MAN 1 % (4-13); MYELOCYTE ABSOLUTE MAN 0.35 K/mm3 (0.00-0.00); MYELOCYTE PERCENT MAN 1 % (0-0); NEUTROPHILS ABSOLUTE MAN 32.27 K/mm3 (1.96-9.15); SEG NEUTROPHILS PERCENT MAN 64 % (41-73)
[2025-03-11] MEDS ORDERED: FLU VACC TS2025(65UP)/MF59C/PF 45 MCG/0.5 ML SYRINGE IM SCH (02:30)
--- NOTE | 2025-03-11 05:31 | NUR ---
REPORTED CRITICAL RESULT OF + BLOOD CULTURES TO DR TAYLOR
[2025-03-11] MEDS ORDERED: METO25ER PO (05:56)
[2025-03-11] MEDS ORDERED: CALCITRIOL0.5 MC1 PO (05:59)
[2025-03-11] MEDS ORDERED: VOLTAREN ARTHRI20 GM TOP (06:01)
[2025-03-11] MEDS ORDERED: Calcium Carbon500 MG PO (06:01)
[2025-03-11] MEDS ORDERED: CAPT25 PO (06:02)
[2025-03-11] MEDS ORDERED: ENGERIX B IM (06:14)
--- NOTE | 2025-03-11 06:14 | NUR ---
ASSUMED CARE @ 0000 PT DIRECT ADMIT FROM [facility]. TOLD IN REPORT PT WAS BEING ADMITTED FOR SEPSIS OF UNKNOWN ORIGIN AND FALL AT HOME/ MISSED DIALYSIS APPT. WAS TOLD PT WAS I&O CATHED FOR A URINE SAMPLE BUT IS BASELINE ANURIC WITH ESRD. PT ARRIVED TO UNIT WITH A FINCH CATHETER THAT WAS UNBEKNOWNST TO NURSING STAFF. REMOVED PER PROTOCOL, NOT REPLACED D/T ANURIA/NURSING JUDGEMENT. NO URINE WAS IN FINCH CATHETER AT TIME OF REMOVAL. PT PLACED ON TELE RUNNING AFIB IN THE 70'S, 2V CXRAY COMPLETED AND BLOOD CULTURES DRAWN. THIS RN WAS CALLED BY [facility] FOR CRITICAL RESULT OF MRSA + BLOOD CULTURE. PHYSICIAN NOTIFIED. REPEAT SAMPLES TO BE COLLECTED FROM DIALYSIS PORT BY DIALYSIS NURSE WHEN PT IS DIALYZED TODAY. PLACED IN CONTACT ISOLATION FOR MRSA WITH OPEN WOUND. PT HAS NONBLANCHABLE PRESSURE INJURY ON COCCYX.
[2025-03-11] MEDS ORDERED: Darbepoetin (Pharmacy Consult) SC SCH (07:20)
[2025-03-11] MEDS ORDERED: Vancomycin (Pharmacy Consult) IV SCH (08:50)
[2025-03-11] MEDS ORDERED: Insulin Human Lispro 100 Units/ML 3ML Syringe SC SCH (09:00)
[2025-03-11] MEDS ORDERED: CAPTOPRIL 25MG TABLET PO SCH (12:04)
[2025-03-11] MEDS ORDERED: POTCHL20ER PO (14:22)
[2025-03-11] MEDS ORDERED: TRAZ50 PO (14:23)
[2025-03-11] MEDS ORDERED: SERTRALINE HCL50 MG PO (14:26)
[2025-03-11] MEDS ORDERED: ERGO50000 PO (14:31)
--- NOTE | 2025-03-11 18:26 | NUR ---
NO ACUTE CHANGES, PATIENT TIRED AND WEAK AFTER DIALYSIS THIS AM, 1000 OF FLUID REMOVED, PATIENT BECAME HYPOTENSIVE AND DIALYSIS WAS UNABLE TO TAKE MORE FLUID, PATIENT ALERT AND OREINTED X2, VERY FORGETFUL, CLEARLY MAKES NEEDS KNOWN, ANURIA, DR JAEGER ROUNDED LATER IN THE DAY, CALL LIGHT WITH IN REACH, WILL RLEAY TO PM RN
[2025-03-11] MEDS ORDERED: Arginine/Glutamine/Calcium Hmb 1 Packet PO SCH (21:00)
[2025-03-11] MEDS ORDERED: Lactobacil 2-S.Thermo-Bifido 1 1 Cap PO SCH (21:00)
[2025-03-11] MEDS ORDERED: Insulin Glargine 100 Unit/ML 3 ML SYR SC SCH (21:00)
--- NOTE | 2025-03-11 23:28 | NUR ---
Critical Value Notification Positive blood cultures w/ gram positive cocci in clusters reported via cell phone to Dr. Pradeep Valadez. Patient currently receiving Vanco IV abx. No acute changes in neuro status from shift start. No new orders. hostess cashier Thomas also informed.
[2025-03-12] VITALS (19 sets, daily range): BP systolic 102–139; BP diastolic 55–73
[2025-03-12 05:07] LABS: BASOPHILS ABSOLUTE AUTO 0.11 K/mm3 (0.00-0.23); BASOPHILS PERCENT AUTO 0 % (0-2); EOSINOPHILS ABSOLUTE AUTO 0.44 K/mm3 (0.00-0.68); EOSINOPHILS PERCENT AUTO 2 % (0-6); Hematocrit 29.9 % (37.0-53.0); Hemoglobin 9.8 g/dL (13.5-17.5); IMMATURE GRAN ABSOLUTE AUTO 1.02 K/mm3 (0.00-0.10); IMMATURE GRAN PERCENT AUTO 4 % (0-1); LYMPHOCYTES ABSOLUTE AUTO 0.99 K/mm3 (0.84-5.20); LYMPHOCYTES PERCENT AUTO 4 % (21-46); MONOCYTES ABSOLUTE AUTO 1.17 K/mm3 (0.16-1.47); MONOCYTES PERCENT AUTO 5 % (4-13); Mean Corpuscular HGB Conc 32.8 g/dL (31.5-36.5); Mean Corpuscular Volume 98 fL (80-100); NEUTROPHILS ABSOLUTE AUTO 21.19 K/mm3 (1.96-9.15); NEUTROPHILS PERCENT AUTO 85 % (41-73); NRBC ABSOLUTE 0.00 K/mm3 (0.00-0.02); NRBC Auto 0.0 /100 WBC (0.0-0.2); Platelet Count 138 K/mm3 (150-400); RDW Coefficient Variation 16.8 % (11.7-14.2); RDW Standard Deviation 60.5 fL (35.1-46.3)
--- NOTE | 2025-03-12 05:32 | NUR ---
PT COMPLAINED OF SoB THIS EVENING AFTER SLEEPING ON HIS BACK, REPOSITIONED WHICH SEEMED TO HELP. BEGAN SHIFT SLIGHTLY MORE LETHARGIC BUT SEEMED TO BECOME MORE WITH IT THE NIGHT WENT ON. NO MORE CHANGES OF NOTE
[2025-03-12 05:40] LABS: Magnesium, Blood 1.2 mg/dL (1.6-2.4)
[2025-03-12 07:11] LABS: Albumin, Blood 2.5 g/dL (3.4-5.0); Anion Gap 3 mmol/L (3-11); Blood Urea Nitrogen 56 mg/dL (8-24); CO2, Blood 36 mmol/L (21-32); Chloride, Blood 94 mmol/L (98-108); Creatinine, Blood 5.90 mg/dL (0.60-1.20); Glucose, Blood 122 mg/dL (70-99); Phosphorus, Blood 2.4 mg/dL (2.5-4.9); Potassium, Blood 3.3 mmol/L (3.5-5.5); Sodium, Blood 130 mmol/L (136-145); Vancomycin, Random 20.3 ug/mL
[2025-03-12 07:18] LABS: Calcium, Blood 8.5 mg/dL (8.5-10.1)
[2025-03-12] MEDS ORDERED: Potassium Chloride 10 Meq Tablet SA PO ONE (07:30)
[2025-03-12] MEDS ORDERED: Potassium Phosphate Dibasic 10 MM in Dextrose 5% 250 ML IV STA (07:36)
[2025-03-12] MEDS ORDERED: Mag Sulfate 1 GM/D5% 100ML 100 ML IV STA (07:37)
--- NOTE | 2025-03-12 08:01 | NUR ---
PT WITH IV MAG AND IV POTASSIUM ORDERED THIS MORNING. PT IS SCHEDULED FOR DIALYSIS AT 0815. THIS RN CONFIRMED WITH DIALYSIS NURSE TORO AND PHARMACIST CORA, PLAN IS TO HOLD POTASSIUM/MAG IV UNTIL AFTER DIALYSIS TREATMENT.
--- NOTE | 2025-03-12 08:24 | NUR ---
PT TRANSPORTED TO DIALYSIS, VIA MEDICAL BED WITH TWO STAFF. RN NOTIFIED JOSE MATSON THAT PT TRANSFERRED TO DIALYSIS.
[2025-03-12] MEDS ORDERED: NS 250 ML IV PRN (12:05)
--- NOTE | 2025-03-12 12:13 | NUR ---
LATE ENTRY: 11:40, PT RETURNED FROM DIALYSIS, TRANSPORTED VIA MEDICAL BED. RN NOTIFIED FIRE INVESTIGATION MANAGER. PT TOLERATED PROCEDURE WELL. OIL SALES AND SERVICE REP REPORTS THEY REMOVED 1.5 LITERS. 12:13: PT IS PRESENTLY EATING BREAKFAST, SITTING IN CHAIR. HE DENIES PAIN.
--- NOTE | 2025-03-12 16:31 | NUR ---
PT IS A&O X4. FULL CODE. RECEIVED DIALYSIS TODAY, REMOVED 1.5 LITERS OF FLUID. LEFT FOOT XR DONE TODAY TO EVALUATE FOR PAIN AFTER 03/10'S GLF, SHOWED OSTEOARTHRITIS, NO FRACTURES OR ACUTE CHANGES. ECHOCARDIOGRAM ALSO DONE TODAY. PLAN IS TO REMOVE PERMACATH FROM RIGHT UPPER CHEST WALL AND ASSESS AV FISTULA IN RIGHT UPPER ARM FOR POSSIBLE FUTURE DIALYSIS. PT IS ON TELEMETRY, RUNNING AFIB IN THE 70'S MOST OF THE SHIFT, WITH OCCASSIONAL PACEMAKER SPIKES. PT RECEIVED IV VANCOMYCIN, AND REPLACEMENT OF POTASSIUM VIA IV. NEW PERIPHERAL IV PLACED TO PT'S LEFT FOREARM.
[2025-03-12] MEDS ORDERED: Darbepoetin Alfa In Albumn Sol 40 MCG/0.4 ML SC SCH (17:00)
[2025-03-12] MEDS ORDERED: Chlorhexidine Mouth Care 15 ML UDC MT SCH (17:00)
--- NOTE | 2025-03-12 21:22 | NUR ---
Nurse Note WHILE GIVING PATIENT INSULIN ORDER STATES 17 UNITS. PATIENT REFUSED TO TAKE ALL 17 UNITS. PATIENT STATES "I DONT TAKE 17 UNITS. I SHOULD TAKE ONLY 8 UNITS. MAYBE I SHOULD TAKE 10 BECAUSE IM DRINKING APPLE JUICE." PATIENT GIVEN 10 UNITS VERIFIED BY KACY FAGAN.
[2025-03-13] VITALS (19 sets, daily range): BP systolic 120–1112; BP diastolic 58–89
[2025-03-13 04:57] LABS: BASOPHILS ABSOLUTE AUTO 0.09 K/mm3 (0.00-0.23); BASOPHILS PERCENT AUTO 1 % (0-2); EOSINOPHILS ABSOLUTE AUTO 0.21 K/mm3 (0.00-0.68); EOSINOPHILS PERCENT AUTO 1 % (0-6); Hematocrit 29.9 % (37.0-53.0); Hemoglobin 9.7 g/dL (13.5-17.5); IMMATURE GRAN ABSOLUTE AUTO 0.09 K/mm3 (0.00-0.10); IMMATURE GRAN PERCENT AUTO 1 % (0-1); LYMPHOCYTES ABSOLUTE AUTO 1.07 K/mm3 (0.84-5.20); LYMPHOCYTES PERCENT AUTO 7 % (21-46); MONOCYTES ABSOLUTE AUTO 0.91 K/mm3 (0.16-1.47); MONOCYTES PERCENT AUTO 6 % (4-13); Mean Corpuscular HGB Conc 32.4 g/dL (31.5-36.5); Mean Corpuscular Volume 98 fL (80-100); NEUTROPHILS ABSOLUTE AUTO 12.83 K/mm3 (1.96-9.15); NEUTROPHILS PERCENT AUTO 84 % (41-73); NRBC ABSOLUTE 0.02 K/mm3 (0.00-0.02); NRBC Auto 0.1 /100 WBC (0.0-0.2); Platelet Count 130 K/mm3 (150-400); RDW Coefficient Variation 16.6 % (11.7-14.2); RDW Standard Deviation 59.6 fL (35.1-46.3)
[2025-03-13 05:38] LABS: Albumin, Blood 2.6 g/dL (3.4-5.0); Anion Gap 9 mmol/L (3-11); Blood Urea Nitrogen 34 mg/dL (8-24); CO2, Blood 31 mmol/L (21-32); Calcium, Blood 9.3 mg/dL (8.5-10.1); Chloride, Blood 94 mmol/L (98-108); Creatinine, Blood 4.43 mg/dL (0.60-1.20); Glucose, Blood 161 mg/dL (70-99); Magnesium, Blood 2.2 mg/dL (1.6-2.4); Phosphorus, Blood 2.4 mg/dL (2.5-4.9); Potassium, Blood 3.9 mmol/L (3.5-5.5); Sodium, Blood 130 mmol/L (136-145); Vancomycin, Random 20.5 ug/mL
--- NOTE | 2025-03-13 05:51 | NUR ---
SHIFT SUMMARY PATIENT ADMITTED FOR HYPOXIA, NEEDING DIALYSIS; SEPSIS OF UNKNOWN ORIGIN. ALERT AND ORIENTED X4 WITH SOME CONFUSION NOTED. VSS. NO ACUTE OVERNIGHT EVENTS. BED RAILS UP X2. BED IN LOWEST POSITION FOR SAFETY. CALL LIGHT WITHIN REACH.
[2025-03-13] MEDS ORDERED: Sodium Phosphate 10 MM in Dextrose 5% 250 ML IV STA (06:14)
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
--- NOTE | 2025-03-13 18:22 | NUR ---
SHIFT SUMMARY: PATIENT A+O X3 AND ABLE TO MAKE NEEDS KNOWN THROUGHOUT THIS DAY. PATIENT HAD DIALYSIS THIS MORNING AND HAD 1.5L REMOVED. ULTRASOUND COMPLETED ON R AV FISTULA, DR. JAEGER NOTIFIED. THIS NURSE SPOKE WITH DR. OLSON AND DISCUSSED PLAN OF CARE. PLAN TO OBTAIN BLOOD CULTURES FROM POWERGLIDE, AND PERIPHERAL BY THE END OF THIS DAY. BLOOD CULTURE FROM CATH TO BE COMPLETED TOMORROW BY DIALYSIS NURSE. LUNGS CLEAR UPON ASCULTATION, TELE RUNNING NSR. THIS GENTLEMAN IS NOTED TO HAVE WAXING MENTATION, HAS SUBTLE OUTBURTS BUT IS ABLE TO BE REDIRECTED. CURRENTLY SITTING IN THE CHAIR, CALL LIGHT WITHIN REACH, WILL GIVE REPORT TO ONCOMING RN.
[2025-03-14] VITALS (17 sets, daily range): BP systolic 112–181; BP diastolic 53–98
--- NOTE | 2025-03-14 04:47 | NUR ---
SHIFT SUMMARY PATIENT ADMITTED FOR HYPOXIA, NEEDING DIALYSIS; SEPSIS OF UNKNOWN ORIGIN. VSS. PATIENT RESTING IN RECLINER THROUGHOUT THE SHIFT. NO ACUTE OVERNIGHT EVENTS. CHAIR ALARM ON FOR SAFETY. CALL LIGHT WITHIN REACH.
[2025-03-14 05:23] LABS: BASOPHILS ABSOLUTE AUTO 0.06 K/mm3 (0.00-0.23); BASOPHILS PERCENT AUTO 1 % (0-2); EOSINOPHILS ABSOLUTE AUTO 0.24 K/mm3 (0.00-0.68); EOSINOPHILS PERCENT AUTO 3 % (0-6); Hematocrit 31.4 % (37.0-53.0); Hemoglobin 10.0 g/dL (13.5-17.5); IMMATURE GRAN ABSOLUTE AUTO 0.08 K/mm3 (0.00-0.10); IMMATURE GRAN PERCENT AUTO 1 % (0-1); LYMPHOCYTES ABSOLUTE AUTO 1.34 K/mm3 (0.84-5.20); LYMPHOCYTES PERCENT AUTO 15 % (21-46); MONOCYTES ABSOLUTE AUTO 0.86 K/mm3 (0.16-1.47); MONOCYTES PERCENT AUTO 10 % (4-13); Mean Corpuscular HGB Conc 31.8 g/dL (31.5-36.5); Mean Corpuscular Volume 98 fL (80-100); NEUTROPHILS ABSOLUTE AUTO 6.48 K/mm3 (1.96-9.15); NEUTROPHILS PERCENT AUTO 72 % (41-73); NRBC ABSOLUTE 0.03 K/mm3 (0.00-0.02); NRBC Auto 0.3 /100 WBC (0.0-0.2); Platelet Count 134 K/mm3 (150-400); RDW Coefficient Variation 16.2 % (11.7-14.2); RDW Standard Deviation 58.7 fL (35.1-46.3)
[2025-03-14 06:00] LABS: Alanine Aminotransfer (ALT/SGP 34 U/L (12-78); Albumin, Blood 2.6 g/dL (3.4-5.0); Albumin/Globulin Ratio 0.6 (0.8-1.8); Anion Gap 8 mmol/L (3-11); Aspartate Aminotrans (AST/SGOT 42 U/L (12-37); Bilirubin, Total 0.6 mg/dL (0.1-1.0); Blood Urea Nitrogen 36 mg/dL (8-24); CO2, Blood 31 mmol/L (21-32); Calcium, Blood 9.3 mg/dL (8.5-10.1); Chloride, Blood 94 mmol/L (98-108); Creatinine, Blood 4.11 mg/dL (0.60-1.20); Globulin, Blood 4.2 g/dL (2.2-4.0); Glucose, Blood 127 mg/dL (70-99); Magnesium, Blood 2.1 mg/dL (1.6-2.4); Potassium, Blood 3.9 mmol/L (3.5-5.5); Sodium, Blood 129 mmol/L (136-145); Total Protein, Blood 6.8 g/dL (6.4-8.2); Vancomycin, Random 21.4 ug/mL
--- NOTE | 2025-03-14 16:18 | NUR ---
DIALYSIS PORT- PER MARINA SHE IS TRYING TO GET THIS PTS PORT REMOVED TONIGHT. SHE WILL CALL ME WITH AN UPDATE. POSS REMOVAL TOMORROW.
--- NOTE | 2025-03-14 18:27 | NUR ---
SHIFT SUMMARY- PT HAD DIALYSIS TODAY. PORT WILL BE REMOVED AND CX TOMORROW PER HCP.
[2025-03-15] VITALS (7 sets, daily range): BP systolic 123–146; BP diastolic 68–98
--- NOTE | 2025-03-15 04:29 | NUR ---
SHIFT SUMMARY PATIENT ADMITTED FOR HYPOXIA, NEEDING DIALYSIS; SEPSIS OF UNKNOWN ORIGIN. ALERT AND ORIENTED X4, ABLE TO MAKE NEEDS KNOWN. VSS. NO ACUTE OVERNIGHT EVENTS. PATIENT RESTING IN BED WITH EYES CLOSED. BED RAILS UP X2. BED IN LOWEST POSITION FOR SAFETY. CALL LIGHT WITHIN REACH.
[2025-03-15 06:08] LABS: BASOPHILS ABSOLUTE AUTO 0.06 K/mm3 (0.00-0.23); BASOPHILS PERCENT AUTO 1 % (0-2); EOSINOPHILS ABSOLUTE AUTO 0.21 K/mm3 (0.00-0.68); EOSINOPHILS PERCENT AUTO 3 % (0-6); Hematocrit 30.0 % (37.0-53.0); Hemoglobin 9.6 g/dL (13.5-17.5); IMMATURE GRAN ABSOLUTE AUTO 0.07 K/mm3 (0.00-0.10); IMMATURE GRAN PERCENT AUTO 1 % (0-1); LYMPHOCYTES ABSOLUTE AUTO 1.35 K/mm3 (0.84-5.20); LYMPHOCYTES PERCENT AUTO 17 % (21-46); MONOCYTES ABSOLUTE AUTO 0.96 K/mm3 (0.16-1.47); MONOCYTES PERCENT AUTO 12 % (4-13); Mean Corpuscular HGB Conc 32.0 g/dL (31.5-36.5); Mean Corpuscular Volume 98 fL (80-100); NEUTROPHILS ABSOLUTE AUTO 5.19 K/mm3 (1.96-9.15); NEUTROPHILS PERCENT AUTO 66 % (41-73); NRBC ABSOLUTE 0.00 K/mm3 (0.00-0.02); NRBC Auto 0.0 /100 WBC (0.0-0.2); Platelet Count 119 K/mm3 (150-400); RDW Coefficient Variation 16.0 % (11.7-14.2); RDW Standard Deviation 57.6 fL (35.1-46.3)
[2025-03-15 06:46] LABS: Alanine Aminotransfer (ALT/SGP 30 U/L (12-78); Albumin, Blood 2.5 g/dL (3.4-5.0); Albumin/Globulin Ratio 0.7 (0.8-1.8); Anion Gap 9 mmol/L (3-11); Aspartate Aminotrans (AST/SGOT 33 U/L (12-37); Bilirubin, Total 0.5 mg/dL (0.1-1.0); Blood Urea Nitrogen 30 mg/dL (8-24); CO2, Blood 31 mmol/L (21-32); Calcium, Blood 8.5 mg/dL (8.5-10.1); Chloride, Blood 95 mmol/L (98-108); Creatinine, Blood 3.95 mg/dL (0.60-1.20); Globulin, Blood 3.8 g/dL (2.2-4.0); Glucose, Blood 91 mg/dL (70-99); Magnesium, Blood 1.9 mg/dL (1.6-2.4); Phosphorus, Blood 2.0 mg/dL (2.5-4.9); Potassium, Blood 3.9 mmol/L (3.5-5.5); Sodium, Blood 131 mmol/L (136-145); Total Protein, Blood 6.3 g/dL (6.4-8.2); Vancomycin, Random 18.0 ug/mL
[2025-03-15] MEDS ORDERED: Sodium Phosphate 10 MM in Dextrose 5% 250 ML IV ONE (08:35)
--- NOTE | 2025-03-15 14:52 | NUR ---
LASIX UPDATE- PHARMACY WAS QUESTIONING THE ORDERS FOR PO AND IV LASIX. PER CALL TO DR. JAEGER PATIENT WILL CONTINUE PO LASIX ON NONDIAYLSIS DAYS.
--- NOTE | 2025-03-15 18:04 | NUR ---
SHIFT SUMMARY- DIALYSIS PORT PULLED TODAY. THE PLAN IS TO GET 2 GOOD CULTURES AND THEN A PERMANENT PORT WILL BE PLACED. PT DID NOT HAVE DIALYSIS TODAY. MEDS WHOLE WITH WATER. SBA BEDSIDE URINAL- ANURIA RIGHT NOW
[2025-03-16] VITALS (8 sets, daily range): BP systolic 132–150; BP diastolic 50–97
[2025-03-16 06:03] LABS: Hematocrit 29.3 % (37.0-53.0); Hemoglobin 9.4 g/dL (13.5-17.5)
[2025-03-16 06:37] LABS: Albumin, Blood 2.4 g/dL (3.4-5.0); Anion Gap 9 mmol/L (3-11); Blood Urea Nitrogen 41 mg/dL (8-24); CO2, Blood 30 mmol/L (21-32); Calcium, Blood 8.6 mg/dL (8.5-10.1); Chloride, Blood 94 mmol/L (98-108); Creatinine, Blood 4.94 mg/dL (0.60-1.20); Glucose, Blood 110 mg/dL (70-99); Magnesium, Blood 2.0 mg/dL (1.6-2.4); Phosphorus, Blood 2.7 mg/dL (2.5-4.9); Potassium, Blood 4.4 mmol/L (3.5-5.5); Sodium, Blood 129 mmol/L (136-145); Vancomycin, Random 29.7 ug/mL
[2025-03-16 06:57] LABS: BASOPHILS ABSOLUTE AUTO 0.06 K/mm3 (0.00-0.23); BASOPHILS PERCENT AUTO 1 % (0-2); EOSINOPHILS ABSOLUTE AUTO 0.22 K/mm3 (0.00-0.68); EOSINOPHILS PERCENT AUTO 3 % (0-6); IMMATURE GRAN ABSOLUTE AUTO 0.13 K/mm3 (0.00-0.10); IMMATURE GRAN PERCENT AUTO 2 % (0-1); LYMPHOCYTES ABSOLUTE AUTO 1.48 K/mm3 (0.84-5.20); LYMPHOCYTES PERCENT AUTO 21 % (21-46); MONOCYTES ABSOLUTE AUTO 0.86 K/mm3 (0.16-1.47); MONOCYTES PERCENT AUTO 12 % (4-13); Mean Corpuscular HGB Conc 32.0 g/dL (31.5-36.5); Mean Corpuscular Volume 97 fL (80-100); NEUTROPHILS ABSOLUTE AUTO 4.35 K/mm3 (1.96-9.15); NEUTROPHILS PERCENT AUTO 61 % (41-73); NRBC ABSOLUTE 0.00 K/mm3 (0.00-0.02); NRBC Auto 0.0 /100 WBC (0.0-0.2); Platelet Count 126 K/mm3 (150-400); RDW Coefficient Variation 15.9 % (11.7-14.2); RDW Standard Deviation 56.8 fL (35.1-46.3)
[2025-03-16 07:47] LABS: C DIFFICILE DNA POSITIVE (Negative)
[2025-03-16 09:25] LABS: Alanine Aminotransfer (ALT/SGP 26 U/L (12-78); Albumin/Globulin Ratio 0.7 (0.8-1.8); Aspartate Aminotrans (AST/SGOT 32 U/L (12-37); Bilirubin, Total 0.6 mg/dL (0.1-1.0); Globulin, Blood 3.6 g/dL (2.2-4.0); Total Protein, Blood 6.0 g/dL (6.4-8.2)
--- NOTE | 2025-03-16 12:39 | NUR ---
NOTE DIALYSIS REPORTED PT CAN NOT HAVE DIALYSIS TODAY DUE TO FISTULA NOT WORKING. THIS RN REPORTED TO DR. JAEGER. DR. JAEGER REPORTED PROVIDER CONSULT FOR IR DUE TO PT NEEDS HEMODIALYSIS CATH. IR CONSULTED BY THIS RN THIS AM. VELMA MORGAN REPORTED PT WILL HAVE NEW HEMODIALYSIS CATH PLACED WHEN BLOOD CULTURES CLEARED. THIS RN REPORTED TO DR. CARREON THAT PT POSITIVE FOR CDIFF. DR. CARREON REPORTED OK FOR PT TO HAVE ELIQUISE. PT BP NOW 132/62. REPORTED TO DR. CARREON PT HAD DOSE OF MIDODRINE THIS AM, ADMINISTERED BY BREAK RN.
--- NOTE | 2025-03-16 14:42 | NUR ---
urine output 200ml measured at 0900
[2025-03-16] MEDS ORDERED: FentaNYL Citrate 50 MCG/ML 2 ML Injection ONE (15:56)
[2025-03-16] MEDS ORDERED: NS 500 ML IV ONE (15:56)
[2025-03-16] MEDS ORDERED: Midazolam HCl 1MG / ML 2ML Vial ONE (15:56)
[2025-03-16] MEDS ORDERED: Heparin Sodium 1000 Units/ML 10ML MDV ONE (16:54)
--- NOTE | 2025-03-16 19:49 | NUR ---
SHIFT SUMMARY PT A&OX4. PT ADMITTED DUE TO HYPOXIA, NEEDING DIALYSIS, SEPSIS OF UNKNOWN ORGIN. PT HAS POS BLOOD CULTURES. PT SBA. PT REPORTS NO PAIN, NO SOB, NO CHEST PAIN. PT IN CONTACT PRECAUTIONS DUE TO C-DIF BUT PT REPORTS "NOT SURE WHEN LAST BM WAS." 03-10 WAS LAST DOCUMENTED BM. PT ACHS CBG. DINNER TIME CBG WAS 163. THIS RN NOTIFIED DR. HERNANDEZ NO INSULING COVERAGE ORDERED. DR. HERNANDEZ GAVE VERBAL FOR LANTUS AND LISPRO. PT ON TELE, NO TELE REPORTS NOTED. IR WAS CONSULTED TODAY CAME, TOOK PT FOR INSERTION OF A RIGHT UPPER CHEST TRI CATH. DRESSING INTACT. REPORTED TO DR. JAEGER PT NOW HAS TEMPORARY CATH, DR. JAEGER REPORTED PT WILL GET DIALYSIS TOMORROW. PT GETTING LASIX. PT IN CHAIR, CHAIR LOCKED, PT USES CALL LIGHT APPROPRIATE. CALL LIGHT IN REACH.
[2025-03-16] MEDS ORDERED: Insulin Glargine-Yfgn 100 Unit/mL 3 ML SYR SC SCH (21:00)
[2025-03-17] VITALS (21 sets, daily range): BP systolic 103–150; BP diastolic 46–87
--- NOTE | 2025-03-17 04:36 | NUR ---
SHIFT SUMMARY ADMITTED FOR HYPOXIA/SEPSIS. FULL CODE. ISOLATION FOR C. DIFF+. TELEMETRY: AFIB @ 72 BPM, PACEMAKER IN PLACE. RENAL DIET. POWERGLIDE IN LUE. IV ANTIB RX ARE SCHEDULED. WE ARE DIURESING HIM. HD PATIENT. RENAL CONSULT IS DR. JAEGER. A&O X3-4. TEMPORARY TRI-CATH IS FOR HD ONLY AT THIS TIME DUE TO RECENT HX OF POSITIVE BLOOD CX'S. ON RA, ACHS CBG'S - LOW SS. RENAL DIET. STANDBY TO INDEPENDENT IN ROOM.
[2025-03-17 05:30] LABS: BASOPHILS ABSOLUTE AUTO 0.08 K/mm3 (0.00-0.23); BASOPHILS PERCENT AUTO 1 % (0-2); EOSINOPHILS ABSOLUTE AUTO 0.23 K/mm3 (0.00-0.68); EOSINOPHILS PERCENT AUTO 3 % (0-6); Hematocrit 31.3 % (37.0-53.0); Hemoglobin 10.0 g/dL (13.5-17.5); IMMATURE GRAN ABSOLUTE AUTO 0.11 K/mm3 (0.00-0.10); IMMATURE GRAN PERCENT AUTO 1 % (0-1); LYMPHOCYTES ABSOLUTE AUTO 1.38 K/mm3 (0.84-5.20); LYMPHOCYTES PERCENT AUTO 18 % (21-46); MONOCYTES ABSOLUTE AUTO 0.81 K/mm3 (0.16-1.47); MONOCYTES PERCENT AUTO 11 % (4-13); Mean Corpuscular HGB Conc 31.9 g/dL (31.5-36.5); Mean Corpuscular Volume 98 fL (80-100); NEUTROPHILS ABSOLUTE AUTO 4.98 K/mm3 (1.96-9.15); NEUTROPHILS PERCENT AUTO 66 % (41-73); NRBC ABSOLUTE 0.00 K/mm3 (0.00-0.02); NRBC Auto 0.0 /100 WBC (0.0-0.2); Platelet Count 143 K/mm3 (150-400); RDW Coefficient Variation 15.9 % (11.7-14.2); RDW Standard Deviation 56.7 fL (35.1-46.3)
[2025-03-17 05:56] LABS: Alanine Aminotransfer (ALT/SGP 28 U/L (12-78); Albumin, Blood 2.7 g/dL (3.4-5.0); Albumin/Globulin Ratio 0.7 (0.8-1.8); Anion Gap 11 mmol/L (3-11); Aspartate Aminotrans (AST/SGOT 31 U/L (12-37); Bilirubin, Total 0.5 mg/dL (0.1-1.0); Blood Urea Nitrogen 56 mg/dL (8-24); CO2, Blood 29 mmol/L (21-32); Calcium, Blood 8.7 mg/dL (8.5-10.1); Chloride, Blood 93 mmol/L (98-108); Creatinine, Blood 6.09 mg/dL (0.60-1.20); Globulin, Blood 3.9 g/dL (2.2-4.0); Glucose, Blood 119 mg/dL (70-99); Potassium, Blood 4.7 mmol/L (3.5-5.5); Sodium, Blood 128 mmol/L (136-145); Total Protein, Blood 6.6 g/dL (6.4-8.2); Vancomycin, Random 26.8 ug/mL
[2025-03-17] MEDS ORDERED: Insulin Human Lispro 100 Units/ML 3ML Syringe SC SCH (07:30)
[2025-03-17] MEDS ORDERED: Ergocalciferol 50000 Intn'l Units PO SCH (09:00)
--- NOTE | 2025-03-17 09:30 | NUR ---
NPPR COMPLETED WITH PRIMARY RN DISCUSSING CARE/UPDATES WITH MD. PT TRANSFERRED TO BED AND TAKEN TO DIALYSIS. DECLINED A.M. MEDS PRIOR TO GOING TO DIALYSIS.
--- NOTE | 2025-03-17 11:14 | NUR ---
NOTE PT GOT AM MEDS. PT REPORTS TUMMY UPSET. PT REPORTS NO NAUSEA. AWARE OF TOX RESULTS ON CDIFF. RUFFLER CHANGED POWERGLIDE DRESSING AND REPORTS POWERGLIDE DRAWS. DIALYSIS REPORTED WILL HAVE DIALYSIS TODAY. DIALYSIS REPORTED HOLD METOPROLOL AND LASIX AND CATOPRIL AND GIVE MIDODRINE CLOSER TO PRIOR TO DIALYSIS. BREAK RN OFFERED MOUTH RINSE AND MIDODRINE AND VIT D RIGHT BEFORE DIALYSIS. BREAK RN REPORTED PT REFUSAL. PT BLOOD PRESSURE THIS AM WAS 122/81. THIS RN LET DIALYSIS KNOW PT DID NOT GET MIDODRINE. DIALYSIS REPORTED "WILL LET THIS RN KNOW IF PT NEEDS IT." PT IN DIALYSIS.
--- NOTE | 2025-03-17 12:43 | NUR ---
NOTE PT BACK FROM DIALYSIS. NOTIFIED PHARMACY PT DID NOT GET METOPROLOL, LASIC AND CAPTOPRIL. PHARMACY REPORTED WILL RETIME CAPTOPRIL AND LASIX AND OK TO GIVE AM DOSE NOW AND TO SKIP AM DOSE OF METOPROLOL DUE TO PT NEXT DOSE AT 1700
--- NOTE | 2025-03-17 13:12 | NUR ---
NOTE DR. JAEGER REPORTED PT ON A 1,000ML FLUID RESTRICT.
--- NOTE | 2025-03-17 20:24 | NUR ---
SHIFT SUMMARY PT A&OX4. MILD CONFUSION AT TIMES. PT ADMITTED DUE TO HYPOXIA AND NEEDING DIALYSIS. PT HAS POSITIVE BLOOD CULTURES. PT AMBULATES W SBA. PT REPORTS NO PAIN, NO SOB, NO CHEST PAIN, PT IN CONTACT PRECAUTIONS DUE TO C DIF. THIS AM, NIGHT RN REPORTED "PT HAD ONE PUDDING LIKE SOFT BM." DR. BAHENA REPORTED "NOT WORRIED ABOUT TREATING CDIFF DUE TO PT NOT STOOLING." PT ACHS CBG. PT HAS A R UPPER CHEST/NECK TRI CATH. DRESSING INTACT. PT ON A 1,000ML FLUID RESTRICT. OLERICULTURE TEACHER CHANGED POWERGLIDE DRESSING, POWERGLIDE HAS POSITIVE BLOOD RETURN. PT GETTING LASIX. PT HAD DIALYSIS THIS AM. PORTABLE SAWYER REPORTED "PT LIKELY TO HAVE DIALYSIS TOMORROW." PT ON TELE, NO TELE REPORTS NOTED. PT WORKED WITH OCCUPATIONAL THERAPY TODAY. PT IN BED, BED IN LOWEST POSITION, CALL LIGHT IN REACH
[2025-03-18] VITALS (16 sets, daily range): BP systolic 132–166; BP diastolic 70–125
[2025-03-18 05:08] LABS: Hematocrit 30.0 % (37.0-53.0); Hemoglobin 9.6 g/dL (13.5-17.5)
[2025-03-18 05:32] LABS: Albumin, Blood 2.4 g/dL (3.4-5.0); Anion Gap 8 mmol/L (3-11); Blood Urea Nitrogen 39 mg/dL (8-24); CO2, Blood 31 mmol/L (21-32); Calcium, Blood 8.2 mg/dL (8.5-10.1); Chloride, Blood 95 mmol/L (98-108); Creatinine, Blood 4.62 mg/dL (0.60-1.20); Glucose, Blood 117 mg/dL (70-99); Magnesium, Blood 2.0 mg/dL (1.6-2.4); Phosphorus, Blood 3.1 mg/dL (2.5-4.9); Potassium, Blood 4.4 mmol/L (3.5-5.5); Sodium, Blood 130 mmol/L (136-145); Vancomycin, Random 19.4 ug/mL
--- NOTE | 2025-03-18 07:40 | NUR ---
A/Ox4, VSS ON RA. ONE LOOSE STOOL OVERNIGHT. CONTACT PRECAUTIONS IN PLACE. PT DENIES PAIN, SOB, NAUSEA. 1L FLUID RESTRICTION. NO ACUTE CHANGES. SAFETY PRECAUTIONS IN PLACE, CALL LIGHT IN REACH.
--- NOTE | 2025-03-18 17:41 | NUR ---
SHIFT SUMMARY PT HAD HD TODAY. PT TOLERATING FLUID RESTRICITON WELL. PT DID BITE THE INSIDE OF HIS LIP TODAY AND REOPENED A CUT FROM A FALL A FEW WEEKS AGO. AREA HAS CONTINUES TO BLEED. PT GIVEN A WASHCLOTHE AND INSTRUCTED TO HOLD PRESSURE ON THAT AREA FOR ABOUT 15 MINUTES TO GET THE BLEEDING TO STOP. PT TOOK WASHCLOTHE AND NODDED. PT HAS LOOSE STOOL TWICE TODAY. NO OTHER ACUTE CHANGES IN ASSESSMENT AT THIS TIME. VS REVIEWED. CALL LIGHT IN REACH.
--- NOTE | 2025-03-18 19:24 | NUR ---
STOOL DESCRIPTION PT HAD A STOOL THIS AFTERNOON. SMALL AND SOFT IN TEXTURE. NOT LIQUID. NO MAJOR FOUL ODOR TO IT. BROWN IN COLOR.
[2025-03-19] VITALS (8 sets, daily range): BP systolic 114–152; BP diastolic 64–102
[2025-03-19 05:42] LABS: Hematocrit 29.3 % (37.0-53.0); Hemoglobin 9.4 g/dL (13.5-17.5)
[2025-03-19 06:19] LABS: Albumin, Blood 2.5 g/dL (3.4-5.0); Anion Gap 9 mmol/L (3-11); Blood Urea Nitrogen 38 mg/dL (8-24); CO2, Blood 31 mmol/L (21-32); Calcium, Blood 8.6 mg/dL (8.5-10.1); Chloride, Blood 97 mmol/L (98-108); Creatinine, Blood 4.37 mg/dL (0.60-1.20); Glucose, Blood 155 mg/dL (70-99); Magnesium, Blood 2.2 mg/dL (1.6-2.4); Phosphorus, Blood 2.8 mg/dL (2.5-4.9); Potassium, Blood 4.2 mmol/L (3.5-5.5); Sodium, Blood 133 mmol/L (136-145); Vancomycin, Random 28.7 ug/mL
--- NOTE | 2025-03-19 06:44 | NUR ---
A/Ox4, VSS ON RA. PT DENIES PAIN, SOB, NAUSEA. NO ACUTE CHANGES OVERNIGHT. 1L FLUID RESTRICTION IN PLACE. NO BM OVERNIGHT. DR. JAEGER ROUNDED, ANTICIPATES DIALYSIS TOMORROW. GI CONTACT PRECAUTIONS CONTINUED.
--- NOTE | 2025-03-19 16:36 | NUR ---
SHIFT SUMMARY NO DIALYSIS TODAY. PT UP TO CHAIR FOR LUNCH. SLEPT IN BED BETWEEN MEALS. MIDODRINE HELD T/O THE DAY. PT GAVE HIMSELF A BED BATH WHILE UP IN CHAIR. NO ACUTE CHANGES IN ASSESSMENT AT THIS TIME. VS REVIEWED. CALL LIGHT IN REACH. DENIES PAIN T/O SHIFT.
[2025-03-20] VITALS (15 sets, daily range): BP systolic 123–179; BP diastolic 65–117
--- NOTE | 2025-03-20 05:00 | NUR ---
SHIFT SUMMARY; PATIENT SLEPT IN LONG INTERVALS. REFUSED [facility]ISE. COULD NOT FIND MOUTHWASH. TELE AFIB, 80 WITH BBB.
[2025-03-20 05:38] LABS: Hematocrit 29.8 % (37.0-53.0); Hemoglobin 9.5 g/dL (13.5-17.5)
[2025-03-20 06:02] LABS: Albumin, Blood 2.5 g/dL (3.4-5.0); Anion Gap 9 mmol/L (3-11); Blood Urea Nitrogen 45 mg/dL (8-24); CO2, Blood 30 mmol/L (21-32); Calcium, Blood 8.2 mg/dL (8.5-10.1); Chloride, Blood 96 mmol/L (98-108); Creatinine, Blood 5.84 mg/dL (0.60-1.20); Glucose, Blood 136 mg/dL (70-99); Magnesium, Blood 1.9 mg/dL (1.6-2.4); Phosphorus, Blood 3.0 mg/dL (2.5-4.9); Potassium, Blood 4.1 mmol/L (3.5-5.5); Sodium, Blood 131 mmol/L (136-145); Vancomycin, Random 25.6 ug/mL
--- NOTE | 2025-03-20 08:06 | NUR ---
0735 CALL TO IR FOR CONSULT TO DECLOT RIGHT ARM FISTULA.
--- NOTE | 2025-03-20 08:07 | NUR ---
8138 DR. GARCIA RETURNED MY CALL TO IR FOR REQUEST FROM DR. JAEGER TO DECLOT RIGHT ARM FISTULA. DR. GARCIA ADVISED HE WOULD NOT BE ABLE TO DECLOT THIS SITE, IT WOULD NEED TO BE DONE BY SURGERY. DR. GARCIA REQUESTED ANOTHER BLOOD CULTURE FOR THIS PATIENT BEFORE HE DOES A DIFFERENT PROCEDURE ON THE RIGHT UPPER CHEST PERMA CATH. THIS ORDER IS PLACED.
--- NOTE | 2025-03-20 13:10 | NUR ---
PATIENT LEFT TO DIALYSIS AT 1145
--- NOTE | 2025-03-20 15:36 | NUR ---
[address] COLBY TO FIND OUT WHEN PATIENT WILL HAVE PROCEDURE TO ESTABLISH A PERMANENT SITE FOR DIALYSIS. DR. COLBY ADVISED THURSDAY DR. MARKS WILL DECLOT THE RIGHT ARM FISTULA, SO IT IS OKAY TO LET THE PATIENT RETURN TO HIS RENAL DIET UNTIL THE NIGHT BEFORE THIS PROCEDURE.
--- NOTE | 2025-03-20 17:37 | NUR ---
SHIFT SUMMARY PATIENT IS A&OX4, HE IS ON ROOM AIR WITH TELE A FLUTTER BBB 70BPM. HE AMBULATES INDEPENDENTLY IN THE ROOM AND IS CONTINENT OF BOTH BOWEL AND BLADDER. DIALYSIS TODAY, USING THE RIGHT UPPER CHEST PORT. DR. CHOPRA TO DECLOT RIGHT ARM FISTULA ON THURSDAY AND PLANS TO DISCHARGE TO [facility] FOLLOWING THIS PROCEDURE. HE HAS NOT BEEN PAINFULL THIS SHIFT. HE CALLS APPROPRIATELY AND IS COOPERATIVE WITH CARE. RENELTY UP IN THE CHAIR FOR DINNER, CALL LIGHT IN REACH.
[2025-03-21 00:13] VITALS: BP 138/83
--- NOTE | 2025-03-21 02:58 | NUR ---
SHIFT SUMMARY NO ACUTE EVENTS DURING THIS SHIFT. PT RESTING IN BED, RR EVEN, UNLABORED. A/O X4, COOPERATIVE WITH CARE, ABLE TO MAKE HIS NEEDS KNOWN. HS BG 156. VSS. BED AT THE LOWEST LEVEL, CALL LIGHT W/I REACH.
[2025-03-21 04:07] VITALS: BP 146/84
[2025-03-21 06:42] LABS: Hematocrit 29.5 % (37.0-53.0); Hemoglobin 9.3 g/dL (13.5-17.5)
[2025-03-21 07:00] LABS: Albumin, Blood 2.4 g/dL (3.4-5.0); Anion Gap 10 mmol/L (3-11); Blood Urea Nitrogen 37 mg/dL (8-24); CO2, Blood 29 mmol/L (21-32); Calcium, Blood 7.9 mg/dL (8.5-10.1); Chloride, Blood 95 mmol/L (98-108); Creatinine, Blood 5.20 mg/dL (0.60-1.20); Glucose, Blood 121 mg/dL (70-99); Magnesium, Blood 2.0 mg/dL (1.6-2.4); Phosphorus, Blood 2.9 mg/dL (2.5-4.9); Potassium, Blood 4.2 mmol/L (3.5-5.5); Sodium, Blood 130 mmol/L (136-145); Vancomycin, Random 20.5 ug/mL
[2025-03-21 08:05] VITALS: BP 149/79
[2025-03-21 15:23] VITALS: BP 129/76
--- NOTE | 2025-03-21 17:29 | NUR ---
SHIFT SUMMARY PATIENT IS A&OX4, HE IS ON ROOM AIR WITH TELE A FLUTTER BBB 70'S. HE AMBULATES INDEPENDENTLY IN THE ROOM AND IS CONTINENT. HE USES THE CALL SYSTEM APPROPRIATELY AND IS ABLE TO MAKE NEEDS KNOWN. DIALYSIS TOMORROW USING THE RIGHT UPPER CHEST TEMPORARY PORT. DR. CHOPRA TO DECLOT RIGHT ARM FISTULA ON 03/23. HE HAS NOT BEEN PAINFUL THIS SHIFT. CURRENTLY UP IN CHAIR FOR DINNER. CALL LIGHT IN REACH.
[2025-03-21 20:09] VITALS: BP 142/93
[2025-03-22] VITALS (19 sets, daily range): BP systolic 104–167; BP diastolic 60–109
--- NOTE | 2025-03-22 03:44 | NUR ---
SHIFT SUMMARY NO ACUTE EVENTS DURING THIS SHIFT. VANIA HELD AT HS FOR THE POSSIBLE DECLOTTING PROCEDURE ON THURSDAY PER SELINA. PT DENIES PAIN. PT ITCHING AND SCRATCHED HIS AMY. CLEANSED AND BANDAID APPLIED. PT DENIES A NEED A MEDICATION FOR ITCHING. PLAN IS FOR DIALYSIS TODAY, THURSDAY. BED AT THE LOWEST POSITION CALL LIGHT W/I REACH. PT IS A/O X4 AND ABLE TO MAKE HIS NEEDS KNOWN AND COOPERATIVE WITH CARE.
[2025-03-22 06:09] LABS: BASOPHILS ABSOLUTE AUTO 0.07 K/mm3 (0.00-0.23); BASOPHILS PERCENT AUTO 1 % (0-2); EOSINOPHILS ABSOLUTE AUTO 0.15 K/mm3 (0.00-0.68); EOSINOPHILS PERCENT AUTO 2 % (0-6); Hematocrit 28.9 % (37.0-53.0); Hemoglobin 9.0 g/dL (13.5-17.5); IMMATURE GRAN ABSOLUTE AUTO 0.02 K/mm3 (0.00-0.10); IMMATURE GRAN PERCENT AUTO 0 % (0-1); LYMPHOCYTES ABSOLUTE AUTO 1.41 K/mm3 (0.84-5.20); LYMPHOCYTES PERCENT AUTO 21 % (21-46); MONOCYTES ABSOLUTE AUTO 0.52 K/mm3 (0.16-1.47); MONOCYTES PERCENT AUTO 8 % (4-13); Mean Corpuscular HGB Conc 31.1 g/dL (31.5-36.5); Mean Corpuscular Volume 98 fL (80-100); NEUTROPHILS ABSOLUTE AUTO 4.46 K/mm3 (1.96-9.15); NEUTROPHILS PERCENT AUTO 67 % (41-73); NRBC ABSOLUTE 0.00 K/mm3 (0.00-0.02); NRBC Auto 0.0 /100 WBC (0.0-0.2); Platelet Count 200 K/mm3 (150-400); RDW Coefficient Variation 15.8 % (11.7-14.2); RDW Standard Deviation 56.7 fL (35.1-46.3)
[2025-03-22 06:27] LABS: Albumin, Blood 2.6 g/dL (3.4-5.0); Anion Gap 9 mmol/L (3-11); Blood Urea Nitrogen 42 mg/dL (8-24); CO2, Blood 32 mmol/L (21-32); Calcium, Blood 7.9 mg/dL (8.5-10.1); Chloride, Blood 94 mmol/L (98-108); Creatinine, Blood 6.42 mg/dL (0.60-1.20); Glucose, Blood 126 mg/dL (70-99); Magnesium, Blood 2.0 mg/dL (1.6-2.4); Phosphorus, Blood 3.4 mg/dL (2.5-4.9); Potassium, Blood 4.2 mmol/L (3.5-5.5); Sodium, Blood 131 mmol/L (136-145); Vancomycin, Random 20.5 ug/mL
[2025-03-22] MEDS ORDERED: NS 250 ML IV PRN (11:30)
--- NOTE | 2025-03-22 13:42 | NUR ---
0910 LEFT TO DIALYSIS
--- NOTE | 2025-03-22 13:43 | NUR ---
1230 RETURNED FROM DIALYSIS
--- NOTE | 2025-03-22 17:01 | NUR ---
SHIFT SUMMARY PATIENT IS A&OX4, ON ROOM AIR WITH TELE AFIB BBB VPACED BEATS PVC'S IN THE 80'S. HE IS INDEPENDENT AND CONTINENT IN THE ROOM.HE HAS NOT BEEN PAINFUL. THE PLAN HAS CHANGED FOR HIS HOSPITAL COURSE. THE PROVIDERS HAVE DECIDED TO FORGO THE DECLOTING OF THE OLD RIGHT ARM FISTULA AND INSTEAD TURN THE RIGHT UPPER CHEST PORT INTO A PERM CATH. THIS IS TO BE DONE EITHER 03/23 OR 03/24. HE WILL DISCHARGE HOME TO [facility] FOLLOWING CONFIRMATION WITH PERM CATH WILL SUSTAIN DIALYSIS TREATMENTS. THIS RN CHANGED THE BANDAGE ON THE POWERGLIDE TODAY AFTER PATIENT RETURNED FROM DIALYSIS. HE IS IN GOOD SPIRITS THIS EVENING. CURRENTLY SITTING UP IN BED AWAITING DINNER. BED IS LOW AND LOCKED, CALL LIGHT IN REACH.
[2025-03-23 00:54] VITALS: BP 133/67
[2025-03-23 05:38] VITALS: BP 160/57
--- NOTE | 2025-03-23 06:11 | NUR ---
SHIFT SUMMARY PT A&Ox4 AND PLEASANT. NO C/O PAIN. LOTION APPLIED TO BACK D/T ITCHY SKIN. IND FROM BED TO CHAIR. DRESSING ON ABD REMAINS C/D/I. VSS. PT SLEPT MOST OF THE NIGHT. BED IN LOWEST POSITION AND CALL LIGHT IN REACH.
[2025-03-23 07:39] VITALS: BP 121/56
[2025-03-23 11:52] VITALS: BP 133/76
[2025-03-23 16:20] VITALS: BP 107/84
--- NOTE | 2025-03-23 18:25 | NUR ---
SUMMARY- AAOX4. PT ON RA. DENIES ANY PAIN. ALL WOUND CARE PERFORMED PER ORDERS. IND IN ROOM. NO ACUTE EVENTS THIS SHIFT. PT SHOWERED. GOOD APPETITE.
--- NOTE | 2025-03-23 19:10 | NUR ---
0930- MD JAEGER GAVE VERBAL TO HAVE 1L FLUID RESTRICTION.
[2025-03-23 20:21] VITALS: BP 119/56
[2025-03-24] VITALS (22 sets, daily range): BP systolic 121–167; BP diastolic 64–116
--- NOTE | 2025-03-24 04:43 | NUR ---
SHIFT SUMMARY PT A&Ox4. NO ACUTE CHANGES. PT IND IN ROOM. NO C/O PAIN. DRESSING ON ABD AND LEFT ARM REMAIN C/D/I. VSS. BED IN LOWEST POSITION AND CALL LIGHT IN REACH.
[2025-03-24 04:48] LABS: Hematocrit 31.2 % (37.0-53.0); Hemoglobin 9.9 g/dL (13.5-17.5)
[2025-03-24 05:07] LABS: Albumin, Blood 2.5 g/dL (3.4-5.0); Anion Gap 11 mmol/L (3-11); Blood Urea Nitrogen 37 mg/dL (8-24); CO2, Blood 28 mmol/L (21-32); Calcium, Blood 7.7 mg/dL (8.5-10.1); Chloride, Blood 98 mmol/L (98-108); Creatinine, Blood 6.86 mg/dL (0.60-1.20); Glucose, Blood 161 mg/dL (70-99); Magnesium, Blood 2.1 mg/dL (1.6-2.4); Phosphorus, Blood 3.3 mg/dL (2.5-4.9); Potassium, Blood 4.2 mmol/L (3.5-5.5); Sodium, Blood 133 mmol/L (136-145); Vancomycin, Random 25.4 ug/mL
[2025-03-24 06:24] LABS: BASOPHILS ABSOLUTE AUTO 0.07 K/mm3 (0.00-0.23); BASOPHILS PERCENT AUTO 1 % (0-2); EOSINOPHILS ABSOLUTE AUTO 0.11 K/mm3 (0.00-0.68); EOSINOPHILS PERCENT AUTO 2 % (0-6); Hematocrit 31.5 % (37.0-53.0); Hemoglobin 9.8 g/dL (13.5-17.5); IMMATURE GRAN ABSOLUTE AUTO 0.01 K/mm3 (0.00-0.10); IMMATURE GRAN PERCENT AUTO 0 % (0-1); LYMPHOCYTES ABSOLUTE AUTO 1.17 K/mm3 (0.84-5.20); LYMPHOCYTES PERCENT AUTO 18 % (21-46); MONOCYTES ABSOLUTE AUTO 0.61 K/mm3 (0.16-1.47); MONOCYTES PERCENT AUTO 9 % (4-13); Mean Corpuscular HGB Conc 31.1 g/dL (31.5-36.5); Mean Corpuscular Volume 100 fL (80-100); NEUTROPHILS ABSOLUTE AUTO 4.55 K/mm3 (1.96-9.15); NEUTROPHILS PERCENT AUTO 70 % (41-73); NRBC ABSOLUTE 0.00 K/mm3 (0.00-0.02); NRBC Auto 0.0 /100 WBC (0.0-0.2); Platelet Count 217 K/mm3 (150-400); RDW Coefficient Variation 16.1 % (11.7-14.2); RDW Standard Deviation 59.4 fL (35.1-46.3)
[2025-03-24] MEDS ORDERED: NS 250 ML IV ONE (14:56)
[2025-03-24] MEDS ORDERED: Heparin Sodium 1000 Units/ML 10ML MDV ONE (14:57)
[2025-03-24] MEDS ORDERED: NS 500 ML IV ONE (15:19)
[2025-03-24] MEDS ORDERED: FentaNYL Citrate 50 MCG/ML 2 ML Injection ONE (15:19)
[2025-03-24] MEDS ORDERED: Midazolam HCl 1MG / ML 2ML Vial ONE (15:19)
[2025-03-24] MEDS ORDERED: Heparin Sodium 10,000 Units/ML 1ML MDV ONE (15:39)
--- NOTE | 2025-03-24 16:47 | NUR ---
SHIFT SUMMARY: A&OX4 THROUGHOUT SHIFT. PLEASANT AND COOPERATIVE WITH CARE. PT RECIEVED DIALYSIS TREATMENT THIS MORNING WITH THE TEMP CATH. THIS AFTERNOON PERMACATH WAS PLACED. VSS POST PROCEDURE. PLAN TO POTENTIALLY D/C TOMORROW. NO ACUTE EVENTS THIS SHIFT. PT LYING IN BED AT THIS TIME. BED LOCKED AND IN THE LOWEST POSITION. CALL LT WITHIN REACH.
[2025-03-25] VITALS (17 sets, daily range): BP systolic 106–152; BP diastolic 67–94
[2025-03-25 05:32] LABS: Hematocrit 30.4 % (37.0-53.0); Hemoglobin 9.7 g/dL (13.5-17.5)
--- NOTE | 2025-03-25 05:49 | NUR ---
SHIFT SUMMARY A&OX4, INDEPENDENT IN ROOM. DOES HAVE MULTIPE AREAS OF SLOW OOZING BLOOD FROM R NECK TEMPORARY HD CATHETER SITE WITH POST-OP CLEAR DRESSING INTACT, R SUBCLAVIAN PERMAMENT CATH SITE WITH INTACT POST-OP CLEAR DRESSING, AND FROM L ELBOW ABRASION THAT IS 2 DAYS OLD. PRESSURE DRESSINGS REINFORCED TO ALL SITES, THIS RN IS RECHECKING EVERY 1 HR OR SOONER. BLEEDING IS SCANT, AND BLOOD PRESSURE AND H&H THIS MORNIGN REMAIN STABLE. PT AWARE OF PLAN FOR OUTPT DE-CLOT OF R ARM CLOTTED OLD FISTULA SITE WITH DR. MARKS'S IR OFFICE IN A WEEK, AND HAS LEFT VOICEMAIL FOR 2 DIFFERENT HOME HEALTH AGENCIES IN [place]. HE PLANS TO [facility] FOR [facility]URN HOME IF DISCHARGED TODAY. REPORTEDLY HE IS FEELING WELL AFTER LAST HD YESTERDAY WITH 4L FLUIDS REMOVED. REMAINS A-PACED ON TELE AT 70-84 BPM, SR, 1 DEG AVB, BBB. CONTACT PRECAUTION FOR MRSA.
[2025-03-25 06:05] LABS: Albumin, Blood 2.7 g/dL (3.4-5.0); Anion Gap 9 mmol/L (3-11); Blood Urea Nitrogen 24 mg/dL (8-24); CO2, Blood 32 mmol/L (21-32); Calcium, Blood 7.8 mg/dL (8.5-10.1); Chloride, Blood 96 mmol/L (98-108); Creatinine, Blood 5.18 mg/dL (0.60-1.20); Glucose, Blood 146 mg/dL (70-99); Magnesium, Blood 1.9 mg/dL (1.6-2.4); Phosphorus, Blood 3.3 mg/dL (2.5-4.9); Potassium, Blood 4.1 mmol/L (3.5-5.5); Sodium, Blood 133 mmol/L (136-145); Vancomycin, Random 20.6 ug/mL
--- NOTE | 2025-03-25 10:54 | NUR ---
RN NOTE MR JONES HAS AMBULATED AROUND THE MEDICAL UNIT INDEPENDENTLY WITH A WALKER, STEADY GAIT. HE HAS DECLINED SCD, DR DOLL INFORMED, ORDER DISCONTINUED PER DR DOLL AND PT EDUCATED ON CONTINUING TO AMBULATE. RIGHT NECK OLD DIALYSIS CATHETER SITE AND NEW CATHETER SITES HAVE SLOWLY OOZING BLEEDING. DRESSINGS WILL BE CHANGED IN DIALYSIS. PLAN FOR DIALYSIS AT 1130AM. AM METOPROLOL AND CAPTOPRIL HELD FOR DIALYSIS PER TELEPHONE ORDER FROM DR CARREON.
--- NOTE | 2025-03-25 15:16 | NUR ---
Shift Summary Mr Singh had dialysis with reported 2.5L removed today. He was very sleepy after dialysis but is now feeling less groggy and ready to sit up for a snack. He ambulated the halls earlier today with steady gait/FWW. He denies pain. Old dialysis catheter site and new dialysis catheter sites are C,D,I after being changed in dialysis today, no further oozing. He denies feeling short of breath. Talking in full sentences. Telemetry Afib, VPaced, BBB. No calls from telecom manager.
[2025-03-26] VITALS (7 sets, daily range): BP systolic 106–151; BP diastolic 64–77
--- NOTE | 2025-03-26 03:40 | NUR ---
SHIFT SUMMARY: PT IS AOX4 AND IND IN ROOM. PT IS ABLE TO MAKE NEEDS KNOWN AND TURNED HIM SELF INDEPENDENTLY. NO ACUTE CHANGES. CALL LIGHT IN REACH
[2025-03-26 06:17] LABS: Hematocrit 31.9 % (37.0-53.0); Hemoglobin 10.1 g/dL (13.5-17.5)
[2025-03-26 06:42] LABS: Albumin, Blood 2.8 g/dL (3.4-5.0); Anion Gap 10 mmol/L (3-11); Blood Urea Nitrogen 23 mg/dL (8-24); CO2, Blood 31 mmol/L (21-32); Calcium, Blood 7.8 mg/dL (8.5-10.1); Chloride, Blood 95 mmol/L (98-108); Creatinine, Blood 5.05 mg/dL (0.60-1.20); Glucose, Blood 126 mg/dL (70-99); Magnesium, Blood 2.1 mg/dL (1.6-2.4); Phosphorus, Blood 3.2 mg/dL (2.5-4.9); Potassium, Blood 3.9 mmol/L (3.5-5.5); Sodium, Blood 132 mmol/L (136-145); Vancomycin, Random 17.9 ug/mL
--- NOTE | 2025-03-26 12:32 | NUR ---
PT ASKED FOOD MOBILE DRIVER ABOUT DIALYSIS CATHETER. THIS RN WENT TO ANSWER QUESTIONS FOR PT. FOUND DIALYSIS CATHETER TO BE APPROX 1 INCH OUT OF SKIN WITH L SIDE OF THE STITCHES REMOVED. PT ASKED "WHAT DO I DO WITH THIS THING" POINTING AND GRABBING FOR THE DIALYSIS CATHETER. TOLD PT TO STOP TOUCHING THE CATHETER. WHEN PT ASKED WHAT HAPPENED TO THE CATHETER, THE PT REPLIED "I THOUGHT IT NEEDED TO COME OUT BEFORE I LEFT" THEN ASKED FOR IT TO BE TAKEN OUT. EXPLAINED TO PT THE CATHETER WAS TO REMAIN INSERTED TO PROVIDE DIALYSIS AN OUTPT. NOTIFIED ONLINE EDUCATION MANAGER AND CALLED DR. COLBY UPON LEAVING THE ROOM. APPLIED STERILE DRY 4X4 GAUZE TO INSERTION SITE. NOTIFIED PRIMARY RN WHEN SHE RETURNED FROM HE LUNCH BREAK.
--- NOTE | 2025-03-26 18:32 | NUR ---
SHIFT SUMMARY PATIENT ALERT AND ORIENTED X4. PATIENT MAKE NEEDS KNOWN. PLEASANT AND COOPERATIVE DURING CARE. NO ACUTE CHANGES THROUGHOUT SHIFT. MEDICATED PER EMAR. PATIENT WAS GOING TO BE DISCHARGED TODAY BUT HE ACCIDENTALLY PULLED HIS PERMACATH THINKING IT WAS HIS TELE. CXR COMPLETED AND IN NEED A NEW PERMACATH. SELF-REPOSITIONED DURING SHIFT. BED LOCKED AND IN LOWEST POSITION. CALL LIGHT WITHIN REACH.
[2025-03-26] MEDS ORDERED: Heparin Sodium,Porcine 5,000 UNIT/0.5 ML SDV SC SCH (21:00)
--- NOTE | 2025-03-27 03:57 | NUR ---
SHIFT SUMMARY: PT IS AOX4 AND IND IN ROOM. PT WALKED AROUND THE UNIT AT THE START OF SHIFT BUT HAS BEEN SLEEPING MOST OF THE SHIFT. PT HAS BEEN NPO SINCE MIDNIGHT INCASE OF NEW DIALYSIS CATH PLACEMENT. PT IS ABLE TO MAKE NEEDS KNOWN.
[2025-03-27 04:05] VITALS: BP 137/76
[2025-03-27 06:46] LABS: Hematocrit 30.6 % (37.0-53.0); Hemoglobin 9.6 g/dL (13.5-17.5)
[2025-03-27 07:16] VITALS: BP 123/75
[2025-03-27 07:24] LABS: Albumin, Blood 2.6 g/dL (3.4-5.0); Anion Gap 12 mmol/L (3-11); Blood Urea Nitrogen 44 mg/dL (8-24); CO2, Blood 28 mmol/L (21-32); Calcium, Blood 7.9 mg/dL (8.5-10.1); Chloride, Blood 96 mmol/L (98-108); Creatinine, Blood 6.45 mg/dL (0.60-1.20); Glucose, Blood 133 mg/dL (70-99); Magnesium, Blood 2.1 mg/dL (1.6-2.4); Phosphorus, Blood 3.3 mg/dL (2.5-4.9); Potassium, Blood 4.2 mmol/L (3.5-5.5); Sodium, Blood 132 mmol/L (136-145); Vancomycin, Random 25.1 ug/mL
[2025-03-27 12:43] VITALS: BP 144/94
--- NOTE | 2025-03-27 14:52 | NUR ---
DR. SORENSON CONTACTED THIS RN AND INFORMED THAT PT WILL NOT BE GOING TO IR FOR PROCEDURE TODAY AND MAY EAT, ALSO INSTRUCTED TO GIVE HIS DAILY DOSES OF ZOLOFT AND LIPITOR. CONTINUE TO HOLD XARELTO AND PT TO BE NPO AFTER MIDNIGHT. MEDICATIONS GIVEN AND EMAR UPDATED.
[2025-03-27] MEDS ORDERED: Darbepoetin Alfa In Albumn Sol 40 MCG/0.4 ML SC SCH (16:00)
--- NOTE | 2025-03-27 16:38 | NUR ---
SHIFT SUMMARY NO ACUTE CHANGES, INDEPENDENT IN ROOM, A/Ox4 c FORGETFULNESS. PROCEDURE FOR PERMACATH PLACEMENT POSTPONED UNTIL 03/28/25, PT TO BE NPO AFTER MIDNIGHT. PT UPDATED RE POC. PT IRRITABLE REGARDING DELAY IN CARE AND DISCHARGE. PT WILL REQUIRE DIALYSIS AFTER PERMACATH PLACEMENT TOMORROW. PT DENIES PAIN. MEDICATIONS ADMINISTER PER PROVIDER ORDERS - SEE EMAR. MORNING MEDICATIONS ADMINISTERED LATE DUE TO NPO FOR PROCEDURE, DAILY MEDICATIONS ADMINISTERED PER PROVIDER INSTRUCTION ONCE PROCEDURE WAS CANCELLED FOR TODAY. PT PROVIDED WITH FOOD/SNACKS. PT CURRENTLY RESTING IN RECLINER WITH CALL LIGHT WITHIN REACH, PT CALLS APPROPRIATELY.
[2025-03-27 16:51] VITALS: BP 111/66
[2025-03-27 20:16] VITALS: BP 101/64
[2025-03-28] VITALS (15 sets, daily range): BP systolic 117–165; BP diastolic 60–105
[2025-03-28 05:54] LABS: Hematocrit 30.3 % (37.0-53.0); Hemoglobin 9.6 g/dL (13.5-17.5)
[2025-03-28 06:53] LABS: Albumin, Blood 2.8 g/dL (3.4-5.0); Anion Gap 11 mmol/L (3-11); Blood Urea Nitrogen 61 mg/dL (8-24); CO2, Blood 27 mmol/L (21-32); Calcium, Blood 7.9 mg/dL (8.5-10.1); Chloride, Blood 96 mmol/L (98-108); Creatinine, Blood 7.86 mg/dL (0.60-1.20); Glucose, Blood 130 mg/dL (70-99); Magnesium, Blood 2.2 mg/dL (1.6-2.4); Phosphorus, Blood 4.2 mg/dL (2.5-4.9); Potassium, Blood 4.6 mmol/L (3.5-5.5); Sodium, Blood 129 mmol/L (136-145); Vancomycin, Random 26.8 ug/mL
--- NOTE | 2025-03-28 07:30 | NUR ---
NO ACUTE CHANGES OVERNIGHT, POWERGLIDE REMOVED BY PATIENT WHILE SLEEPING, PIV PLACED. PT ON RA USES CALL LIGHT APPROPRIATELY NPO SINCE 0000.
[2025-03-28] MEDS ORDERED: Lidocaine 2% Viscous Soln 20 ML,Nystatin 100,000 Unit/ml Susp 20 ML,Mag Hydrox/Al Hydro... MT SCH (12:00)
--- NOTE | 2025-03-28 13:20 | NUR ---
THIS RN CALLED TO [facility] FOR UPDATE ON PROCEDURE TIME. PER ANN S, PT NOT SCHEDULED AT THIS TIME. WILL UDPATE MINING HELPER WITH TIME WHEN AVAILABLE. PT NPO SINCE MIDNIGHT
[2025-03-28] MEDS ORDERED: NS 250 ML IV ONE (14:25)
[2025-03-28] MEDS ORDERED: Heparin Sodium 1000 Units/ML 10ML MDV ONE (14:26)
[2025-03-28] MEDS ORDERED: FentaNYL Citrate 50 MCG/ML 2 ML Injection ONE (15:12)
[2025-03-28] MEDS ORDERED: NS 1,000 ML IV ONE (15:12)
[2025-03-28] MEDS ORDERED: Midazolam HCl 1MG / ML 2ML Vial ONE (15:12)
--- NOTE | 2025-03-28 15:17 | NUR ---
PT TAKEN FOR DIALYSIS CATH PLACEMENT. STEPHANIE CRISIS COUNSELOR AQUATIC CENTRE MANAGER, NOTIFIED OF PLAN TO BE OUT OF INSTALLATION ENGINEER APPROX 30-45 MIN. PER ANIKET BROWN, SHE WILL PLACE CALL TO DR. JAEGER TO DETERMINE IF DIALYSIS IS STILL PLANNED AFTER CATHETER PLACEMENT.
--- NOTE | 2025-03-28 16:12 | NUR ---
SUMMARY PT BACK IN ROOM FROM CATH PLACEMENT. PER RN, LOW DOSE HEPARIN USED TO LOCK PORT. WILL PASS ALONG TO PHARMACEUTICAL SALESPERSON. PLAN TO DIALYZE IN 30 MINUTES. PT ALERT AND ORIENTED X4, DENIES CHEST PAIN AND SOB, REQUESTING COFFEE AND SNACK. PLAN FOR DISCHARGE TOMORROW.
--- NOTE | 2025-03-28 16:46 | NUR ---
Pt. is awake and sitting up in a chair when he welcomes my visit. Pt. is pleasant but displays evidence of being distant. Pt. responds to inquires with one word answers. Pt. could not verbalize what his prognosis is. Pt. displayed evidence of being very comfortable in his bed and in his room. Prayed with the Pt. Pt. verbalized gratitude for the spiritual care visit.
--- NOTE | 2025-03-28 19:19 | NUR ---
PT BACK IN ROOM FROM DIALYSIS. PLAN TO DIALYZE PRIOR TO D/C TOMORROW. PT DENIES NEEDING ANYTHING AT THIS TIME. BEDSIDE SHIFT REPORT COMPLETED. NO NEW CONCERNS THIS SHIFT
--- NOTE | 2025-03-28 22:30 | NUR ---
CALLED HOSPITALIST INFORMED HIM OF HR < 60 BPM. METOLPROLOL HELD PER ORDER. PARAMETERS NOW ENTERED INTO EMAR FOR THIS DOSE AT THIS TIME.
[2025-03-29] VITALS (14 sets, daily range): BP systolic 12–148; BP diastolic 70–91
--- NOTE | 2025-03-29 04:33 | NUR ---
Shift Summary: AOx4 S/P HD at the beginning of shift & tolerated procedure well, R subclavian Vas-Cath intact no S/S active bleed/discharge @ site, pt denies discomfort, all scheduled meds taken well, LFA IVL CDI IV Furosemide admin via IVL w no resistance noted. Pt. respiratioons ckear & non-labored, no congestion and/or obvious S/S fluid overload notable. R AV shunt intact, negative bruitt & thrill palpated. Pt. in good spirits, and states that he can't wait to go home after his scheduled HD today.
[2025-03-29 05:59] LABS: Hematocrit 30.9 % (37.0-53.0); Hemoglobin 9.8 g/dL (13.5-17.5)
[2025-03-29 06:46] LABS: Albumin, Blood 2.8 g/dL (3.4-5.0); Anion Gap 11 mmol/L (3-11); Blood Urea Nitrogen 41 mg/dL (8-24); CO2, Blood 30 mmol/L (21-32); Calcium, Blood 7.5 mg/dL (8.5-10.1); Chloride, Blood 95 mmol/L (98-108); Creatinine, Blood 6.57 mg/dL (0.60-1.20); Glucose, Blood 125 mg/dL (70-99); Magnesium, Blood 1.9 mg/dL (1.6-2.4); Phosphorus, Blood 3.4 mg/dL (2.5-4.9); Potassium, Blood 4.0 mmol/L (3.5-5.5); Sodium, Blood 132 mmol/L (136-145); Vancomycin, Random 22.6 ug/mL
[2025-03-29] MEDS ORDERED: VISBIOME 112.51 EACH PO (12:41)
[2025-03-29] MEDS ORDERED: VANCOMYCIN HCL750 MG IV (12:43)
--- NOTE | 2025-03-29 17:31 | NUR ---
DISCHARGE NOTE PT D/C HOME AT 1415. PT PROVIDED W/ VERBAL AND WRITTEN INSTRUCTIONS BY ANIKET JOHNSON AND REPORTED UNDERSTANDING. PT A&OX4, VSS, AMB IND, TOLERATING PO, VOIDING, AND DENIED PAIN. PERMACATH IN PLACE, DRESSING C/D/I. CHAIR TIME CONFIRMED BY CARE COORDINATION. PT ESCOURTED OUT VIA W/C TO [facility] BY ISIDRO STANLEY.
== END 2025-03-29 14:37 | disposition home health service (06) | DRG 314 ==
LOC: MEDS 21:04 → ENPENDDIS 03-26 18:09 → MEDS 03-28 11:10
PROVIDERS: Internal Medicine Nephrology; Student in an Organized Health Care Education/Training Program; ADMIT Internal Medicine
PROC: 3E03329 Introduction of Other Anti-infective into Peripheral Vein, Percutaneous Approach (ICD-10-PCS; 2025-03-11)
PROC: 5A1D70Z Performance of Urinary Filtration, Intermittent, Less than 6 Hours Per Day (ICD-10-PCS; 2025-03-11)
PROC: 30233J1 Transfusion of Nonautologous Serum Albumin into Peripheral Vein, Percutaneous Approach (ICD-10-PCS; 2025-03-12)
PROC: 02HV33Z Insertion of Infusion Device into Superior Vena Cava, Percutaneous Approach (ICD-10-PCS; 2025-03-16)
PROC: B5131ZZ Fluoroscopy of Right Jugular Veins using Low Osmolar Contrast (ICD-10-PCS; 2025-03-16)
PROC: 0JH63XZ Insertion of Tunneled Vascular Access Device into Chest Subcutaneous Tissue and Fascia, Percutaneous Approach (ICD-10-PCS; principal; 2025-03-28)
PROC: 02HV33Z Insertion of Infusion Device into Superior Vena Cava, Percutaneous Approach (ICD-10-PCS; 2025-03-28)
DX: T80.211A Bloodstream infection due to central venous catheter, initial encounter (principal); A41.02 Sepsis due to Methicillin resistant Staphylococcus aureus; N18.6 End stage renal disease; I48.20 Chronic atrial fibrillation, unspecified; I50.22 Chronic systolic (congestive) heart failure; I13.2 Hypertensive heart and chronic kidney disease with heart failure and with stage 5 chronic kidney disease, or end stage renal disease; E87.1 Hypo-osmolality and hyponatremia; T82.42XA Displacement of vascular dialysis catheter, initial encounter; I82.C11 Acute embolism and thrombosis of right internal jugular vein; T85.71XA Infection and inflammatory reaction due to peritoneal dialysis catheter, initial encounter; T82.868A Thrombosis due to vascular prosthetic devices, implants and grafts, initial encounter; Y71.2 Prosthetic and other implants, materials and accessory cardiovascular devices associated with adverse incidents; I95.89 Other hypotension; R29.6 Repeated falls; K21.9 Gastro-esophageal reflux disease without esophagitis; E11.22 Type 2 diabetes mellitus with diabetic chronic kidney disease; D63.1 Anemia in chronic kidney disease; E83.52 Hypercalcemia; E88.09 Other disorders of plasma-protein metabolism, not elsewhere classified; K74.60 Unspecified cirrhosis of liver; M79.672 Pain in left foot; E78.5 Hyperlipidemia, unspecified; R19.5 Other fecal abnormalities; E87.6 Hypokalemia; E83.39 Other disorders of phosphorus metabolism; Z91.81 History of falling; Z99.2 Dependence on renal dialysis; Z88.8 Allergy status to other drugs, medicaments and biological substances; Z79.4 Long term (current) use of insulin
CPT/HCPCS: 36415; 71046; 73620; 76937; 80053; 80069; 80202; 82947; 83605; 83735; 83880; 84100; 84145; 85014; 85018; 85025; 85610; 87040; 87077; 87147; 87186; 87324; 87493; 93306; 93990; 96365; 96366; 97110; 97116; 97161; 97165; 97530; 97535; 99152; 99153; A9270; C1750; C1751; C1752; C1769; G0378; J0881; J1644; J1815; J1938; J2250; J3010; J3373; J3475; J7030; J7040; J7050; J7060; Q9967